=== PATIENT | female | born 1970 | race Caucasian/White ===

== ENCOUNTER 2019-08-11 11:44 | Inpatient (IN) | payer OTHER, SELFPAY ==
[2019-08-11] VITALS (9 sets, daily range): BP systolic 125–141; BP diastolic 69–106; PULSE 63–98; RESP 14–20; TEMP 36.5–36.8; O2SAT 98–99
--- NOTE | ~2019-08-11 | XR_ITS ---
EXAMINATION: XR chest 2V DATE: 08/11/2019 12:34 INDICATION: Chest pain. TECHNIQUE: Frontal and lateral views of the chest were obtained. COMPARISON: Chest 2 views 01/07/2019 FINDINGS: The chest demonstrates clear lungs without pneumonia, pleural effusion, or pneumothorax. Th e heart size is normal. IMPRESSION: 1. No acute cardiopulmonary disease. Reviewed, dictated and finalized at location A.
--- NOTE | 2019-08-11 12:00 | ECG_ITS ---
Measurements Intervals [place] Rate: 68 P: 41 MT: 212 QRS: -8 QRSD: 104 T: 62 QT: 365 QTc: 389 Interpretive Statements SINUS RHYTHM WITH FIRST DEGREE AV BLOCK INCOMPLETE RIGHT BUNDLE BRANCH BLOCK BASELINE WANDER- II, V4-V5 ABNORMAL ECG Electronically Signed On 08-11-2019 14:12:35 CDT by Salvador Pineda D.O.
--- NOTE | 2019-08-11 12:09 | ED.CHESTPAIN ---
HPI - Chest Pain General Chief Complaint: Chest Pain <KELSY Yeager Last Filed: 08/11/19 14:47> Stated Complaint: chest pain <KELSY Yeager Last Filed: 08/11/19 14:47> Time Seen by Provider: 08/11/19 11:58 <KELSY Yeager Last Filed: 08/11/19 14:47> Source: patient <KELSY Yeager Last Filed: 08/11/19 14:47> Mode of arrival: ambulatory <KELSY Yeager Last Filed: 08/11/19 14:47> Limitations: no limitations <KELSY Yeager Last Filed: 08/11/19 14:47> History of Present Illness HPI narrative: This is a 49 year old female that presents to the ER for chest pain x 3 days. Reports intermittent sharp substernal chest pain that has been happening with exertion. Reports the pain radiates to her right arm. Does report some shortness of breath with it. Is relieved with rest. She was seen by her PCP this morning and sent here for further evaluation. Reports while she was walking over here she started to have some pain again. Denies fever, cough. <KELSY Yeager Last Filed: 08/11/19 14:47> Related Data Home Medications: Home Medications Medication Instructions Recorded Confirmed buspirone 5 mg PO BID PRN 08/11/19 08/11/19 metformin 500 mg PO TID 08/11/19 08/11/19 <KELSY Yeager Last Filed: 08/11/19 14:47> Allergies/Adverse Reactions: Allergies Allergy/AdvReac Type Severity Reaction Status Date / Time No Known Allergies Allergy Verified 08/11/19 13:34 <KELSY Yeager Last Filed: 08/11/19 14:47> Review of Systems Review of Systems: Narrative: CONSTITUTIONAL: Denies fever CARDIOVASCULAR: Reports chest pain RESPIRATORY: Reports dyspnea. Denies cough <KELSY Yeager Last Filed: 08/11/19 14:47> All systems reviewed & are unremarkable except as noted in HPI and below <Elizabeth Fuller PA-C - Last Filed: 08/11/19 14:47> [facility] Past Medical History Medical History: Medical History (Updated 08/11/19 @ 17:49 by Edna Melara NP) Chest pain HLD (hyperlipidemia) HTN (hypertension), benign Type 2 diabetes mellitus without complications <Elizabeth Fuller PA-C - Last Filed: 08/11/19 14:47> Surgical History Surgical History: Surgical History (Updated 08/11/19 @ 17:49 by Edna Melara NP) H/O bladder repair surgery Sling History of hysterectomy with bilateral oophorectomy <KELSY Yeagre Last Filed: 08/11/19 14:47> Family History Family History: Family History (Updated 08/11/19 @ 17:50 by Edna Melara NP) Mother Diabetes mellitus Lung cancer Pacemaker Grandparent Colon cancer Father Family history unknown Siblings are healthy <Elizabeth Fuller PA-C - Last Filed: 08/11/19 14:47> Social History Social History: Social History (Updated 08/11/19 @ 17:51 by Edna Melara NP) Social History: The patient works for [employer]. She has a caregiver for her disabled daughter. The patient is to [place] and desires to have him as a durable power environmental attorney for healthcare. Patient desires to be a full code. The patient stop smoking last year in December and has had increasing anxiety since then. The patient does not use any alcohol marijuana or illicit drugs. Smoking packs per day: 2 Smoking cigarettes per day: 40.0 Years smoked: 35 Smoking pack-years: 70.00 Smoking status: Former smoker Tobacco type: cigarettes Second hand tobacco smoke exposure: Yes Smoking end date: 01/02/19 Alcohol intake: never Substance use: never Substance use type: does not use Living arrangements: with family Gender identity (if verbalized by the patient): Female Spiritual care concerns: No <Elizabeth Fuller PA-C - Last Filed: 08/11/19 14:47> Exam Narrative: Exam Narrative: GENERAL: Well-appearing, obese, and in no acute distress. HEAD: Normocephalic, atraumatic. EYES: EOMI. CHEST: Clear to auscultat
[2019-08-11 13:10] LABS: INR 0.9; Prothrombin Time 11.6 Seconds (11.1-14.7)
[2019-08-11 13:11] LABS: Partial Thromboplastin Time 25.6 SECONDS (22.3-36.8)
[2019-08-11 13:14] LABS: Blood Urea Nitrogen 14 mg/dL (7-17); Calcium 9.4 mg/dL (8.4-10.2); Carbon Dioxide 30 mmol/L (22-30); Chloride 101 mmol/L (98-107); Estimated CRCL calculation 161 ml/min; Estimated Glomerular Filt Rate > 60; Glucose 133 mg/dL (65-105); Potassium 4.1 mmol/L (3.4-5.0); Sodium 137 mmol/L (137-145)
[2019-08-11 13:24] LABS: Basophils Absolute Auto 0.1 K/mm3 (0.0-0.1); Basophils Percent Auto 0.8 % (0.2-1.2); Eosinophils Absolute Auto 0.2 K/mm3 (0-0.3); Eosinophils Percent Auto 2.3 % (0-4.4); Hematocrit 42.2 % (37.0-47.0); Hemoglobin 13.6 g/dL (12.0-15.0); Immature Granulocyte Absolute 0.05 K/mm3 (0.00-0.031); Immature Granulocyte Percent A 0.5 % (0-0.5); Lymphocytes Absolute Auto 2.72 K/mm3 (0.9-3.2); Lymphocytes Percent Auto 27.1 % (18.3-44.2); Mean Corpuscular HGB Conc 32.2 g/dl (32-36); Mean Corpuscular Hemoglobin 28.7 pg (26-34); Mean Platelet Volume 8.6 fl (7.4-10.4); Monocytes Absolute Auto 0.6 K/mm3 (0.1-0.6); Monocytes Percent Auto 5.7 % (2.6-8.5); Neutrophils Absolute Auto 6.4 K/mm3 (1.3-6.7); Neutrophils Percent Auto 63.6 % (45.5-73.1); Platelet Count Result 376 k/mm3 (150-375); Red Blood Count 4.74 M/mm3 (4.2-5.4); Red Cell Distribution Width 14.5 % (11.5-14.5)
[2019-08-11 13:26] LABS: Troponin I < 0.012 ng/mL (0.000-0.034)
[2019-08-11] MEDS: ASPIRIN 81 MG CHEWABLE TABLET 324 MG PO (13:36)
--- NOTE | 2019-08-11 14:45 | ED.CHESTPAIN ---
HPI - Chest Pain General Chief Complaint: Chest Pain Stated Complaint: chest pain Time Seen by Provider: 08/11/19 11:58 Source: patient Mode of arrival: ambulatory Limitations: no limitations Related Data Home Medications Medication Instructions Recorded Confirmed buspirone 5 mg PO BID PRN 08/11/19 08/11/19 metformin 500 mg PO TID 08/11/19 08/11/19 Allergies Allergy/AdvReac Type Severity Reaction Status Date / Time No Known Allergies Allergy Verified 08/11/19 13:34 [facility] Past Medical History Medical History (Updated 08/11/19 @ 17:49 by Edna Melara NP) Chest pain HLD (hyperlipidemia) HTN (hypertension), benign Type 2 diabetes mellitus without complications Surgical History Surgical History (Updated 08/11/19 @ 17:49 by Edna Melara NP) H/O bladder repair surgery Sling History of hysterectomy with bilateral oophorectomy Family History Family History (Updated 08/11/19 @ 17:50 by Edna Melara NP) Mother Diabetes mellitus Lung cancer Pacemaker Grandparent Colon cancer Father Family history unknown Siblings are healthy Social History Social History (Updated 08/11/19 @ 17:51 by Edna Melara NP) Social History: The patient works for [employer]. She has a caregiver for her disabled daughter. The patient is to [place] and desires to have him as a durable power divorce attorney for healthcare. Patient desires to be a full code. The patient stop smoking last year in December and has had increasing anxiety since then. The patient does not use any alcohol marijuana or illicit drugs. Smoking packs per day: 2 Smoking cigarettes per day: 40.0 Years smoked: 35 Smoking pack-years: 70.00 Smoking status: Former smoker Tobacco type: cigarettes Second hand tobacco smoke exposure: Yes Smoking end date: 01/02/19 Alcohol intake: never Substance use: never Substance use type: does not use Living arrangements: with family Gender identity (if verbalized by the patient): Female Spiritual care concerns: No Course Vital Signs Vital signs: Vital Signs Temperature 98.3 F 08/11/19 11:56 Pulse Rate 67 08/11/19 11:56 Respiratory Rate 18 08/11/19 11:56 Blood Pressure 125/106 H 08/11/19 11:56 Pulse Oximetry 99 08/11/19 11:56 Temperature 98 F 08/11/19 16:30 Pulse Rate 63 08/11/19 18:00 Respiratory Rate 14 08/11/19 16:30 Blood Pressure 129/69 08/11/19 16:30 Pulse Oximetry 98 08/11/19 16:30 MDM - Chest Pain Lab Data Result diagrams: 08/11/19 13:19 08/11/19 12:55 Labs: Lab Results 08/11/19 08/11/19 08/11/19 Range/Units 12:55 12:55 13:19 WBC 10.0 (4.5-10.0) K/mm3 RBC 4.74 (4.2-5.4) M/mm3 Hgb 13.6 (12.0-15.0) g/dL Hct 42.2 (37.0-47.0) % MCV 89.0 (80-100) fl MCH 28.7 (26-34) pg MCHC 32.2 (32-36) g/dl RDW 14.5 (11.5-14.5) % Plt Count 376 H (150-375) k/mm3 MPV 8.6 (7.4-10.4) fl Immature Gran % (Auto) 0.5 (0-0.5) % Neut % (Auto) 63.6 (45.5-73.1) % Lymph % (Auto) 27.1 (18.3-44.2) % [place] % (Auto) 5.7 (2.6-8.5) % Eos % (Auto) 2.3 (0-4.4) % Baso % (Auto) 0.8 (0.2-1.2) % Lymph # (Auto) 2.72 (0.9-3.2) K/mm3 [place] # (Auto) 0.6 (0.1-0.6) K/mm3 Eos # (Auto) 0.2 (0-0.3) K/mm3 Baso # (Auto) 0.1 (0.0-0.1) K/mm3 Abs Immat Gran (auto) 0.05 H (0.00-0.031) K/mm3 Absolute Neuts (auto) 6.4 (1.3-6.7) K/mm3 Absolute Nucleated RBC 0.0 (0.0-0.012) K/mm3 Nucleated RBC % 0.0 (0.0-0.2) % PT 11.6 (11.1-14.7) Seconds INR 0.9 APTT 25.6 (22.3-36.8) SECONDS Sodium 137 (137-145) mmol/L Potassium 4.1 (3.4-5.0) mmol/L Chloride 101 (98-107) mmol/L Carbon Dioxide 30 (22-30) mmol/L BUN 14 (7-17) mg/dL Creatinine 0.50 L (0.7-1.0) mg/dL Estim Creat Clear Calc 161 ml/min Estimated GFR > 60 (59 - ) Glucose 133 H (65-105) mg/dL Calcium 9.4 (8.
--- NOTE | 2019-08-11 15:39 | PM.CNCAR ---
Assessment and Plan Additional Plan 49-year-old white female with: Exertional chest pain history very suspicious for an typical of angina symptoms beginning several days ago. Morbid obesity hypertension dyslipidemia NIDDM physical exam evidence of peripheral vascular disease as detailed above I would proceed with diagnostic coronary angiography tomorrow morning. The patient understands the procedure details and is agreeable to proceeding. Tomorrow IM in the office and most likely the angiogram will be done by 1 of my partners. Benito Wilks MD [facility] History of Present Illness History of Present Illness Consult date/time: Date of service:08/11/19 15:39 Consult reason: chest pain Reason For Visit: chest pain Narrative: this is a 49-year-old woman that I am seeing at the request of the hospitalist. She came to the emergency room at the request of her PCP earlier this morning because of chest pain. She is being seen in the emergency room because she is waiting for a bed upstairs on the floor to be admitted. She is not previously known to have cardiac problems but states she began to have exertional chest pain late last week. On and Sunday of last week she started to notice some mild chest pain with physical activity such as walking that was never the case in the past. The symptoms were relatively mild and so she did not find too concerning. On Sunday she had similar symptoms when she was trying to do some yd work and other chores and the symptoms created enough concern where she decided to remain sedentary and stop performing activities. Because of this she was more concerned but still rest of the rest of the evening and had slept well set at going into Sunday. Yesterday on Sunday she had similar symptoms while she was walking her dog. She describes the symptoms as a central retrosternal chest pressure-like pain associated with some shortness of breath. The symptoms again resolved with walking. She called her doctor this morning she went to the PCP was seen in the office when she related this history they put her in a wheelchair and took her to the emergency room for evaluation and presumably for admission. In the emergency room her electrocardiogram is benign appearing her biomarkers are negative times of her set. The ED physician has already made the decision to admit this patient to the hospital and we have been consulted to participate in her care. She states she was concerned because of the phipps virus hoping not to have to come to the hospital. She has no other symptoms or complaints today. She denies any orthopnea PND or lower extremity edema she has not had any symptoms of palpitations or syncope. Principal risk factors include hypertension hypercholesterolemia non insulin-dependent diabetes and a previous history of smoking she quit smoking in December of 2018 after smoking for 35 years. Review of Systems Constitutional: Constitutional: Reports no additional constitutional complaints Eyes: Eyes: Reports no additional eye complaints ENT: Reports system reviewed and no additional complaints, except as documented Cardiovascular: Cardiovascular: Reports as per HPI and Reports chest pain Respiratory: Respiratory: Reports dyspnea on exertion Gastrointestinal: Gastrointestinal: Reports no additional gastrointestinal complaints Musculoskeletal: Musculoskeletal: Reports no additional musculoskeletal complaints Integumentary/Breasts: Skin/Breast: Reports system reviewed and no additional complaints, except as docu Neurologic: Reports system reviewed and no additional complaints, except as documented Psychiatric: Psychiatric: Reports no additional psychiatric complaints Endocrine: Endocrine: Reports no additional endocrine complaints Hematologic/Lymphatic: Hematologic/Lymphatic: Reports no additional hematologic/lymphatic complaints Allergic/Immunologic: Allergic/Immunologic: Reports no additional al
[2019-08-11 16:13] LABS: Troponin I < 0.012 ng/mL (0.000-0.034)
--- NOTE | 2019-08-11 16:19 | PC.NURSE ---
This patient, Kelli Fortune, was admitted to IMU Room 212-01. Patient/family oriented to hospital policies and general routines including ID bracelet, bed and alarms, visiting hours, pain management, procedures, bathroom and other care routines, personal items, smoking policy, room service/diet, and visiting hours. Valuables list has been completed. Information on how to activate the Rapid Response Team has been discussed. Patient/Family are encouraged to report perceived risks to care and to ask questions if they do not understand what they are told or what they should do.
--- NOTE | 2019-08-11 17:43 | PM.IMHP ---
H&P: HPI History of Present Illness Chief complaint: chest pain Narrative: Kelli Fortune is a 49 year old female who has no prior history of any cardiac disease. The patient does have a history of hypertension and diabetes. The patient stated that she is had chest pain since Sunday. The patient stated that she was walking when she developed some chest pain on Sunday. She sat down and relaxed and the pain went away. On Sunday she was walking her dog when only walked about a block and she got the chest pain again so she had to stop and rest and it would the pain was relieved when she rested. She has not had a previous stress test. Sunday the patient rested all day and she did not have any chest discomfort. The patient has a high deductible on her insurance and was afraid to come to the emergency room and also she did want to be here alone a new her would be with her she got admitted to the hospital. She went to her primary care doctor's office today to explain what happened over the weekend. She stated that the pain radiated down her left arm when she was getting the chest pain. She has had no history of any irregular heartbeat. She did not feel any palpitations. She does have a history of anxiety and acid reflux but she states that this is different from her usual anxiety. Cardiac biomarkers are negative so far. Cardiology has been consulted and there was a plan for cardiac catheterization tomorrow. The patient stated that she did take an aspirin today. Patient is not having any chest pain today. No nausea no vomiting no fever no chills no cough. EKG was noted per marine driller sinus rhythm first-degree AV block. The patient described her pain as a tightness or deep pain or pressure. She had no shortness of breath with this. She did have some mild chest discomfort when she was walking into the [place] building today. Patient was given aspirin in the emergency room. No acute cardiopulmonary disease. Date of service 08/11/2019. Review of Systems Review of Systems: All systems reviewed & are unremarkable except as noted in HPI and below Constitutional: Constitutional: Reports as per HPI and Reports no additional constitutional complaints Eyes: Eyes: Reports as per HPI and Reports no additional eye complaints ENT: Reports system reviewed and no additional complaints, except as documented and Reports Normal hearing present Cardiovascular: Cardiovascular: Reports no additional cardiovascular complaints Respiratory: Respiratory: Reports no additional respiratory complaints and Reports no additional respiratory complaints Gastrointestinal: Gastrointestinal: Reports as per HPI and Reports no additional gastrointestinal complaints Musculoskeletal: Musculoskeletal: Reports no additional musculoskeletal complaints Integumentary/Breasts: Skin/Breast: Reports system reviewed and no additional complaints, except as docu and Reports as per HPI Neurologic: Reports system reviewed and no additional complaints, except as documented, Reports as per HPI and Reports Normal hearing present Psychiatric: Psychiatric: Reports no additional psychiatric complaints and Reports as per HPI Endocrine: Endocrine: Reports no additional endocrine complaints Hematologic/Lymphatic: Hematologic/Lymphatic: Reports no additional hematologic/lymphatic complaints Allergic/Immunologic: Allergic/Immunologic: Reports no additional allergic/immunologic complaints PMFSH Past Medical History Medical History (Updated 08/11/19 @ 17:49 by Edna Melara NP) Chest pain HLD (hyperlipidemia) HTN (hypertension), benign Type 2 diabetes mellitus without complications Surgical History Surgical History (Updated 08/11/19 @ 17:49 by Edna Melara NP) H/O bladder repair surgery Sling History of hysterectomy with bilateral oophorectomy Family History Family History (Updated 08/11/19 @ 17:50 by Edna Melara NP) Mother Diabetes mellitus Lung cance
[2019-08-11] MEDS: lisinopriL 10 MG TABLET PO (18:15)
[2019-08-11] MEDS: ESCITALOPRAM OXALATE 10 MG TABLET PO (18:15)
[2019-08-11 19:28] LABS: Troponin I < 0.012 ng/mL (0.000-0.034)
[2019-08-11 20:32] LABS: Glucose Point of Care 151 (65-105)
[2019-08-12] VITALS (19 sets, daily range): BP systolic 101–154; BP diastolic 45–79; PULSE 54–105; RESP 12–20; TEMP 36.3–36.7; O2SAT 96–100
--- NOTE | 2019-08-12 | ECHO_ITS ---
Patient Info Name: Kelli Fortune Age: 49 years : 1970 Gender: Female Ht: 70 in Wt: 280 lbs BSA: 2.56 m2 HR: 60 bpm BP: 130 / 69 mmHg Heart Rhythm: Sinus Rhythm Technical Quality: Fair Exam Date: 08/12/2019 12:02 PM Exam Location: [facility] Patient Status: Inpatient Admit Date: 08/11/2019 Staff Ordering Physician: Ovi Adorno MD Para Machine Operator: Eulogio Minaya RDCS Attending Provider: Demetrice Joel MD Exam Type: CA echo dop color flow w con Study Info Indications I20.0 - Unstable angina Complete two-dimensional, color flow and Doppler transthoracic echocardiogram is performed with contrast to opacify the left ventrical and to improve the deliniation of the left ventrical endocarial boarders. Contrast/Agitated Saline Contrast/Ag. Saline: Definity Amount: 2.00 ml Administered By: Stephanie Adamson RN Existing IV Access: Yes History/Risk Factors Unstable angina; CAD pre-op for CABG, DM2, HTN. Summary 1. Left ventricular chamber size, systolic function and diastolic function are normal with no regional wall motion abnormalities with an estimated ejection fraction of 60-65%. No wall motion abnormalities. Mild concentric left ventricular hypertrophy. 2. Left atrial chamber dimension is mildly enlarged. 3. Left ventricle is not well visualized. Definity Echo contrast used. 4. No pulmonary hypertension, estimated pulmonary arterial systolic pressure is 33 mmHg. 5. No significant valve disease. 6. Normal sinus rhythm. Left Ventricle Left ventricular chamber dimension is normal. Left ventricular systolic function is normal, estimated at 60-65%. There is mildly increased left ventricular wall thickness. Left ventricular septal wall motion is normal. The left ventricular diastolic function is normal. Left ventricular chamber size, systolic function and diastolic function are normal with no regional wall motion abnormalities with an estimated ejection fraction of 60-65%. No wall motion abnormalities. Mild concentric left ventricular hypertrophy. Left ventricle is not well visualized. Definity Echo contrast used. Right Ventricle Right ventricular chamber dimension is normal. Right ventricular systolic function is normal. Left Atria Left atrial chamber dimension is mildly enlarged. Right Atria Right atrial chamber dimension is normal. Aortic Valve The aortic valve is trileaflet. There is no aortic valve sclerosis. There is no aortic valve stenosis. There is no aortic valve regurgitation. Pulmonic Valve The pulmonic valve is normal. There is no pulmonic valve stenosis. There is no pulmonic regurgitation. Mitral Valve The mitral valve has normal leaflets. There is no mitral valve stenosis. There is no mitral valve regurgitation. Tricuspid Valve The tricuspid valve leaflets are normal. There is no significant tricuspid valve stenosis. There is trace tricuspid valve regurgitation. No pulmonary hypertension, estimated pulmonary arterial systolic pressure is 33 mmHg. Pericardium/Pleural The pericardium appears normal. There is no pericardial effusion. Inferior Vena Cava Normal inferior vena cava with >50% collapse upon inspiration consistent with Empty right atrial pressure, 5 mmHg. Aorta The aortic root size at the sinus of Valsalva is normal. The prox ascending aorta size is normal. Left Ventricular Outflow Tract
[2019-08-12 04:22] LABS: Basophils Absolute Auto 0.1 K/mm3 (0.0-0.1); Basophils Percent Auto 0.8 % (0.2-1.2); Eosinophils Absolute Auto 0.2 K/mm3 (0-0.3); Eosinophils Percent Auto 2.4 % (0-4.4); Hematocrit 37.6 % (37.0-47.0); Hemoglobin 12.4 g/dL (12.0-15.0); Immature Granulocyte Absolute 0.03 K/mm3 (0.00-0.031); Immature Granulocyte Percent A 0.3 % (0-0.5); Lymphocytes Absolute Auto 2.76 K/mm3 (0.9-3.2); Lymphocytes Percent Auto 30.2 % (18.3-44.2); Mean Corpuscular Volume 88.1 fl (80-100); Mean Platelet Volume 8.5 fl (7.4-10.4); Monocytes Absolute Auto 0.6 K/mm3 (0.1-0.6); Monocytes Percent Auto 6.6 % (2.6-8.5); Neutrophils Absolute Auto 5.5 K/mm3 (1.3-6.7); Neutrophils Percent Auto 59.7 % (45.5-73.1); Platelet Count Result 349 k/mm3 (150-375); Red Blood Count 4.27 M/mm3 (4.2-5.4); Red Cell Distribution Width 14.6 % (11.5-14.5); White Blood Count 9.1 K/mm3 (4.5-10.0)
[2019-08-12 04:39] LABS: Alanine Aminotransferase 21 U/L (4-35); Albumin Level 3.9 g/dL (3.5-5.1); Alkaline Phosphatase 95 U/L (38-126); Aspartate Amino Transferase 21 U/L (14-36); Bilirubin,Total 0.2 mg/dL (0.2-1.3); Blood Urea Nitrogen 17 mg/dL (7-17); Calcium 9.1 mg/dL (8.4-10.2); Carbon Dioxide 27 mmol/L (22-30); Chloride 102 mmol/L (98-107); Estimated CRCL calculation 161 ml/min; Estimated Glomerular Filt Rate > 60; Glucose 149 mg/dL (65-105); Potassium 3.9 mmol/L (3.4-5.0); Sodium 135 mmol/L (137-145)
[2019-08-12] MEDS: ASPIRIN 81 MG ENTERIC TABLET BY MOUTH (08:06)
[2019-08-12] MEDS: ESCITALOPRAM OXALATE 10 MG TABLET PO (08:06)
[2019-08-12] MEDS: lisinopriL 10 MG TABLET PO (08:06)
[2019-08-12 08:08] LABS: Glucose Point of Care 176 (65-105)
--- NOTE | 2019-08-12 08:20 | PC.NURSE ---
Patient to cardiac rags laborer via stretcher.
--- NOTE | 2019-08-12 08:40 | WPDMODSED ---
Moderate Sedation Note-Pt Data Patient Data Allergies Allergy/AdvReac Type Severity Reaction Status Date / Time No Known Allergies Allergy Verified 08/11/19 13:34 Home Medications Medication Instructions Recorded Confirmed Type lisinopril 10 mg tablet 10 mg PO DAILY #30 tablet 04/22/19 08/11/19 Rx escitalopram oxalate 10 mg tablet 10 mg PO DAILY #30 tablet 05/28/19 08/11/19 Rx buspirone 5 mg PO BID PRN 08/11/19 08/11/19 History metformin 500 mg PO TID 08/11/19 08/11/19 History Current Medications: Active Medications Aspirin (Aspirin Ec) 81 mg BY MOUTH DAILY [facility] Stop: 09/11/19 09:01 Last Admin: 08/12/19 08:06 Dose: 81 mg Documented by: Buspirone HCl (Buspar) 5 mg PO BID PRN PRN Reason: Anxiety Dextrose (Dextrose 50% Syringe) 12.5 gm IV PUSH PRN PRN; Protocol PRN Reason: Hypoglycemia Escitalopram Oxalate (Lexapro) 10 mg PO DAILY [facility] Last Admin: 08/12/19 08:06 Dose: 10 mg Documented by: Glucagon (Glucagon For Inj) 1 mg IM PRN PRN; Protocol PRN Reason: Hypoglycemia Glucose (Glutose 15) 15 gm PO PRN PRN; Protocol PRN Reason: Hypoglycemia Sodium Chloride (Normal Saline Iv) 500 mls @ 100 mls/hr IV CONT .Q5H [facility] Dextrose (Dextrose 5% 1,000 Ml) 1,000 mls @ 100 mls/hr IVPB PRN PRN; Protocol PRN Reason: Hypoglycemia Insulin Aspart (Novolog) 2 - 5 units SUB-Q TIDWM [facility]; Protocol Last Admin: 08/12/19 07:53 Dose: Not Given Documented by: Lisinopril (Prinivil) 10 mg PO DAILY [facility] Last Admin: 08/12/19 08:06 Dose: 10 mg Documented by: Lorazepam (Ativan Inj) 0.5 mg IV PUSH Q6H PRN PRN Reason: Anxiety Morphine Sulfate (Morphine Sulfate Inj) 2 mg IV PUSH Q4H PRN PRN Reason: Pain Rated 7-10 Nitroglycerin (Nitrostat Subl 0.4 Mg (1/150)) 0.4 mg SUBLINGUAL Q5MIN PRN PRN Reason: Chest Pain Sedation/Anesthesia: No previous sedation/anesthesia problems (including family history). [facility] Past Medical History Medical History (Updated 08/11/19 @ 17:49 by Edna Melara NP) Chest pain HLD (hyperlipidemia) HTN (hypertension), benign Type 2 diabetes mellitus without complications Surgical History Surgical History (Updated 08/11/19 @ 17:49 by Edna Melara NP) H/O bladder repair surgery Sling History of hysterectomy with bilateral oophorectomy Family History Family History (Updated 08/11/19 @ 17:50 by Edna Melara NP) Mother Diabetes mellitus Lung cancer Pacemaker Grandparent Colon cancer Father Family history unknown Siblings are healthy Social History Social History (Updated 08/11/19 @ 17:51 by Edna Melara NP) Social History: The patient works for [employer]. She has a caregiver for her disabled daughter. The patient is to [employer] [place] and desires to have him as a durable power securities attorney for healthcare. Patient desires to be a full code. The patient stop smoking last year in December and has had increasing anxiety since then. The patient does not use any alcohol marijuana or illicit drugs. Smoking packs per day: 2 Smoking cigarettes per day: 40.0 Years smoked: 35 Smoking pack-years: 70.00 Smoking status: Former smoker Tobacco type: cigarettes Second hand tobacco smoke exposure: Yes Smoking end date: 01/02/19 Alcohol intake: never Substance use: never Substance use type: does not use Living arrangements: with family Gender identity (if verbalized by the patient): Female Spiritual care concerns: No Mod Sed Physical Exam Physical Exam Pre Procedural Exam: Normal: Airway Hours since solid foods: 10 Hours since liquid intake: 10 Internal Medicine - PN: Obj Da Vital Signs Vital Signs: Vital Signs - 24 hr 08/11/19 11:56 08/11/19 13:32 08/11/19 16:00 Temperature 36.8 C Pulse Rate 67 67 71 Respiratory Rate 18 16 Blood Pressure 125/106 H 127/86 Pulse Oximetry 99 99 08/11/19 16:08 08/11/19 16:30 08/11/19 18:00 Temperature 36.6 C Pulse Rate 65 67 63 Respiratory Rate 16 14 Blood Pressure 130/100 H
--- NOTE | 2019-08-12 08:42 | WPDHPUPDATE1 ---
History and Physical Update Update Date/Time: 08/12/19 08:42 History and Physical has been reviewed, including an updated exam of the patient. There are NO changes in the patient's condition. Risks, benefits, and alternatives have been discussed and questions answered. Patient agrees to proceed with procedure.
--- NOTE | 2019-08-12 10:08 | WPDCARDPROC ---
Cardiac Cath Procedure Note Date of procedure:: 08/12/19 Performing physician:: Ovi Adorno MD Procedure Procedure note:: LEFT HEART CATHETERIZATION, CORONARY ANGIOGRAM AND INTERVENTION REPORT DATE OF PROCEDURE: 08/12/2019 INDICATION FOR PROCEDURE: Unstable angina BRIEF CLINICAL HISTORY: 49-year-old female with past medical history of hypertension, type 2 diabetes mellitus on oral hypoglycemics, morbid obesity. Patient was admitted to [facility] on 08/11/2019 from her primary care physician's office with complaints of substernal chest discomfort associated with shortness of breath that started about 3 days prior to the presentation. There is no known prior cardiac history. Her EKG did not show any significant ST-T abnormality. Serial troponins were negative. She was referred for coronary angiogram in the setting of unstable angina. Benefits, risks and alternatives of the procedure were discussed with the patient and informed consent was taken prior to the procedure. PROCEDURES PERFORMED: 1. Left heart catheterization- Selective left and right coronary angiogram; left ventriculogram and hemodynamic assessment 2. Intravascular ultrasound (IVUS) of left main, proximal -mid LAD 2. Selective right common femoral angiogram and deployment of Angio-Seal hemostatic device 4. Moderate sedation-CPT code 68915 MODERATE SEDATION: Midazolam 3 mg; fentanyl 75 mcg; Start time 0846 , Stop time 0953 ; Total [id number] time 67 minutes; Nguyen Dinh RN was trained observer for moderate sedation. ACCESS SITE: Right common femoral artery PROCEDURE NOTE: After obtaining informed consent, patient was brought to catheterization lab and prepped and draped in a usual sterile manner. After local anesthesia with lidocaine, right common femoral artery access was taken with micropuncture needle followed by insertion of a 5 Kyrgyz sheath. Selective left and right coronary angiogram was performed using 5 Kyrgyz JL3.5 and JR4 catheters respectively. Orthogonal views were taken. Next, a 5 Kyr[place]z pigtail catheter was advanced in the LV cavity and was flushed with normal saline. LV pressure measurement was performed. After this, left ventriculogram was performed. The catheter was flushed again, and gradient across the aortic valve was measured on the pullback of the catheter. Finally, selective right common femoral angiogram was performed followed by successful deployment of Angio-Seal vascular closure device. Patient tolerated procedure well without any immediate procedure related complications. FINDINGS: LEFT MAIN CORONARY: the left main coronary artery is a medium caliber vessel. There was catheter damping. In the caudal projections, no significant stenosis was seen. However, in the cranial view ( SAMI 32, cranial 24 ), about 70% stenosis is seen at the ostium of the left main coronary artery. There was no significant angiographic improvement with the intracoronary nitroglycerin. The intravascular ultrasound findings are described below. The left main bifurcates into LAD and left circumflex branches. The LAD tapers distally and becomes a small caliber vessel in the distal segment and does not reach LV apex. LEFT ANTERIOR DESCENDING ARTERY: The LAD is a medium caliber vessel with mild irregularities in the proximal segment; but 50-70% stenosis seen in the mid segment distal to the major diagonal branch. Major diagonal branch is a medium to large caliber vessel with mild diffuse disease in the proximal segment. LEFT CIRCUMFLEX ARTERY: The left circumflex artery is a medium to large caliber vessel, gives rise to medium-sized OM 1 branch and medium to large-sized OM2 branch with mild plaque in both vessels. The main LCX continues in the AV groove. RIGHT CORONARY ARTERY: The right coronary artery is a large caliber, dominant vessel. There is mild about 20% stenosis in the mid segment. The vessel gives rise to large caliber PDA and PLV branches. L
--- NOTE | 2019-08-12 10:15 | SUR.PHASEII ---
1015-pt presents to the [facility] after an LHC. Pt had CP which resolved during the case but now has 4/10 CP. Started Nitro drip again. CP has resolved and will monitor for return of CP. Heparin drip ordered and will begin when received. Will continue to monitor.
[2019-08-12] MEDS: HEPARIN SOD/D5W 100 UNITS/ML 25,000 UNITS/250 ML BAG 10 UNITS (10:54)
[2019-08-12] MEDS: NITROGLYCERIN/D5W 200 MCG/ML 50 MG/250 ML BTL IV CONT (10:55)
--- NOTE | 2019-08-12 11:07 | PC.NURSE ---
Report called to XAVIER Gavin in ICU. Patient to be transferred to ICU 9 from cardiac cath for nitroglycerin drip. Belongings taken to patient in chest pain center by jaison Wu.
[2019-08-12] MEDS: HEPARIN SOD/D5W 100 UNITS/ML 25,000 UNITS/250 ML BAG 10 UNITS IV CONT (11:20)
[2019-08-12 11:48] LABS: Basophils Absolute Auto 0.1 K/mm3 (0.0-0.1); Basophils Percent Auto 0.7 % (0.2-1.2); Eosinophils Absolute Auto 0.1 K/mm3 (0-0.3); Eosinophils Percent Auto 1.4 % (0-4.4); Hematocrit 43.5 % (37.0-47.0); Hemoglobin 14.1 g/dL (12.0-15.0); Immature Granulocyte Absolute 0.04 K/mm3 (0.00-0.031); Immature Granulocyte Percent A 0.4 % (0-0.5); Lymphocytes Absolute Auto 1.65 K/mm3 (0.9-3.2); Lymphocytes Percent Auto 17.4 % (18.3-44.2); Mean Corpuscular HGB Conc 32.4 g/dl (32-36); Mean Corpuscular Hemoglobin 29.1 pg (26-34); Mean Corpuscular Volume 89.9 fl (80-100); Mean Platelet Volume 8.6 fl (7.4-10.4); Monocytes Absolute Auto 0.5 K/mm3 (0.1-0.6); Monocytes Percent Auto 4.7 % (2.6-8.5); Neutrophils Absolute Auto 7.2 K/mm3 (1.3-6.7); Neutrophils Percent Auto 75.4 % (45.5-73.1); Platelet Count Result 368 k/mm3 (150-375); Red Blood Count 4.84 M/mm3 (4.2-5.4); Red Cell Distribution Width 14.5 % (11.5-14.5); White Blood Count 9.5 K/mm3 (4.5-10.0)
[2019-08-12 11:57] LABS: INR 1.2; Prothrombin Time 14.9 Seconds (11.1-14.7)
[2019-08-12 11:58] LABS: Partial Thromboplastin Time 67.2 SECONDS (22.3-36.8)
[2019-08-12 15:15] LABS: Glucose Point of Care 129 (65-105)
--- NOTE | 2019-08-12 15:58 | PM.IMPN ---
Progress Note: A&P Assessment and Plan (1) Chest pain: Qualifiers: Chest pain type: unspecified Qualified Code(s): R07.9 - Chest pain, unspecified Code(s): R07.9 - Chest pain, unspecified Status: Acute Assessment and Plan: Continue to trend troponins. Cardiology has been consulted. On an aspirin. Will add p.r.n. nitro and morphine if patient developed some chest pain. Continue to monitor the patient on telemetry. Planning on patient going to cardiac catheterization tomorrow. (2) Type 2 diabetes mellitus without complications: Code(s): E11.9 - Type 2 diabetes mellitus without complications Status: Chronic Assessment and Plan: Accu-Cheks AC and HS. Hold her metformin as she is going for cardiac catheterization tomorrow. (3) HLD (hyperlipidemia): Code(s): E78.5 - Hyperlipidemia, unspecified Status: Chronic Assessment and Plan: Patient was not placed on any statins at this time but I imagine she has a heart disease she was placed on a statin. (4) Anxiety: Code(s): F41.9 - Anxiety disorder, unspecified Status: Acute Assessment and Plan: Patient is doing well on Lexapro and I will add some p.r.n. Ativan. She is also on buspirone. (5) HTN (hypertension), benign: Code(s): I10 - Essential (primary) hypertension Status: Acute Assessment and Plan: Continue with lisinopril. Subjective Date/time seen: 08/12/19 15:58 Objective Data Vital Signs Vital Signs: Vital Signs - 24 hr 08/11/19 16:00 08/11/19 16:08 08/11/19 16:30 Temperature 98 F Pulse Rate 71 65 67 Respiratory Rate 16 14 Blood Pressure 130/100 H 129/69 Pulse Oximetry 98 98 08/11/19 18:00 08/11/19 19:45 08/11/19 20:00 Temperature 97.7 F Pulse Rate 63 98 69 Respiratory Rate 20 Blood Pressure 141/69 H Pulse Oximetry 99 08/11/19 22:00 08/12/19 00:00 08/12/19 02:00 Temperature 98.0 F Pulse Rate 65 69 67 Respiratory Rate 18 Blood Pressure 101/45 L Pulse Oximetry 98 08/12/19 03:53 08/12/19 04:00 08/12/19 05:55 Temperature 97.9 F Pulse Rate 61 57 L 58 L Respiratory Rate 20 Blood Pressure 115/57 L Pulse Oximetry 98 08/12/19 08:00 08/12/19 10:15 08/12/19 10:30 Temperature 97.3 F L 98.1 F Pulse Rate 55 L 59 L 56 L Respiratory Rate 16 12 14 Blood Pressure 141/63 H 154/77 H 131/67 Pulse Oximetry 100 98 100 08/12/19 10:46 08/12/19 11:00 08/12/19 11:15 Temperature Pulse Rate 59 L 58 L 57 L Respiratory Rate 14 14 16 Blood Pressure 143/70 H 133/77 140/72 Pulse Oximetry 100 98 99 08/12/19 11:30 08/12/19 12:00 08/12/19 13:00 Temperature 98 F 97.8 F Pulse Rate 60 57 L 59 L Respiratory Rate 14 16 14 Blood Pressure 130/69 134/62 107/69 Pulse Oximetry 98 96 98 08/12/19 14:00 08/12/19 15:00 Temperature Pulse Rate 65 78 Respiratory Rate 14 14 Blood Pressure 121/67 119/60 Pulse Oximetry 98 98 Intake/Output Intake/Output: Intake & Output 08/09/19 08/10/19 08/11/19 08/12/19 23:59 23:59 23:59 23:59 Intake Total 540 860 Output Total 1500 Balance 540 -640 Meds/Results Medications: Active Medications Generic Name Dose Route Start Last Admin Trade Name Freq PRN Reason Stop Dose Admin Aspirin 81 mg 08/12/19 09:00 08/12/19 08:06 Aspirin Ec BY MOUTH 09/11/19 09:01 81 mg DAILY MARQUES Administration Buspirone HCl 5 mg 08/11/19 18:03 Buspar PO BID PRN Anxiety Dextrose 12.5 gm 08/11/19 18:06 Dextrose 50% Syringe IV PUSH PRN PRN Hypoglycemia Protocol Escitalopram Oxalate 10 mg 08/11/19 18:10 08/12/19 08:06 Lexapro PO 10 mg DAILY MARQUES Administration Glucagon 1 mg 08/11/19 18:06 Glucagon For Inj IM PRN PRN Hypoglycemia Protocol Glucose 15 gm 08/11/19 18:06 Glutose 15 PO PRN PRN Hypoglycemia Protocol Heparin Sodium (Porcine) 4,000 units 08/12/19 11:47 Heparin Sodium
--- NOTE | 2019-08-12 16:07 | PM.TDS ---
Transfer Discharge Sum: Prov Provider Date of admission: 08/12/19 11:24 Primary care physician: Guillermo Rubio MD Admitting clinician: Demetrice Joel MD Consults: 08/11/19 14:43 Consult to Physician Routine Comment: Consulting Provider: Manasa Nye Reason for consultation: Chest pain Has provider been notified: Yes Attending physician on discharge: Ben Dominguez Anticipated date of transfer: 08/12/19 DS: Diagnosis Admitting Diagnosis Admitting Diagnosis: Chest pain, unspecified Discharge Diagnosis (1) CAD (coronary artery disease): Qualifiers: Coronary Disease-Associated Artery/Lesion type: samish artery [place] vs. transplanted heart: samish heart Associated angina: with unstable angina Qualified Code(s): I25.110 - Atherosclerotic heart disease of samish coronary artery with unstable angina pectoris Code(s): I25.10 - Atherosclerotic heart disease of samish coronary artery without angina pectoris Status: Acute (2) Chest pain: Qualifiers: Chest pain type: chest pain due to myocardial ischemia Ischemic chest pain type: unstable angina pectoris Qualified Code(s): I20.0 - Unstable angina Code(s): R07.9 - Chest pain, unspecified Status: Acute (3) Type 2 diabetes mellitus without complications: Code(s): E11.9 - Type 2 diabetes mellitus without complications Status: Chronic (4) HLD (hyperlipidemia): Code(s): E78.5 - Hyperlipidemia, unspecified Status: Chronic (5) Anxiety: Code(s): F41.9 - Anxiety disorder, unspecified Status: Acute (6) HTN (hypertension), benign: Code(s): I10 - Essential (primary) hypertension Status: Acute Transfer Discharge Sum: Med Medications Active and Home Medications: Home Medications lisinopril 10 mg tablet 10 mg PO DAILY #30 tablet 04/22/19 [Rx Confirmed 08/11/19] escitalopram oxalate 10 mg tablet 10 mg PO DAILY #30 tablet 05/28/19 [Rx Confirmed 08/11/19] buspirone 5 mg PO BID PRN 08/11/19 [History Confirmed 08/11/19] metformin 500 mg PO TID 08/11/19 [History Confirmed 08/11/19] Active Medications Aspirin (Aspirin Ec) 81 mg BY MOUTH DAILY MARQUES Stop: 09/11/19 09:01 Last Admin: 08/12/19 08:06 Dose: 81 mg Documented by: Buspirone HCl (Buspar) 5 mg PO BID PRN PRN Reason: Anxiety Dextrose (Dextrose 50% Syringe) 12.5 gm IV PUSH PRN PRN; Protocol PRN Reason: Hypoglycemia Escitalopram Oxalate (Lexapro) 10 mg PO DAILY [facility] Last Admin: 08/12/19 08:06 Dose: 10 mg Documented by: Glucagon (Glucagon For Inj) 1 mg IM PRN PRN; Protocol PRN Reason: Hypoglycemia Glucose (Glutose 15) 15 gm PO PRN PRN; Protocol PRN Reason: Hypoglycemia Heparin Sodium (Porcine) (Heparin Sodium) 4,000 units IV PUSH PRN PRN PRN Reason: aPTT less than 55 seconds Heparin Sodium (Porcine) (Heparin Sodium) 3,500 units IV PUSH PRN PRN PRN Reason: aPTT 55 - 70 seconds Sodium Chloride (Normal Saline Iv) 500 mls @ 100 mls/hr IV CONT .Q5H MARQUES Last Admin: 08/12/19 13:34 Dose: Not Given Documented by: Dextrose (Dextrose 5% 1,000 Ml) 1,000 mls @ 100 mls/hr IVPB PRN PRN; Protocol PRN Reason: Hypoglycemia Nitroglycerin/Dextrose (Nitroglycerin In 5% Dextrose 50 Mg) 50 mg in 250 mls @ 0.75 mls/hr IV CONT .Q24H MARQUES; Protocol Last Titration: 08/12/19 11:15 Dose: 2.5 mcg/min, 0.8 mls/hr Documented by: Sodium Chloride (Normal Saline Iv) 1,000 mls @ 125 mls/hr IV CONT .Q8H ONE Stop: 08/12/19 18:36 Last Admin: 08/12/19 13:35 Dose: Not Given Documented by: Heparin Sodium/Dextrose (Heparin Sodium/D5w 100 Units/Ml) 25,000 units in 250 mls @ 10 mls/hr IV CONT .Q24H [facility]; Protocol Last Admin: 08/12/19 11:20 Dose: 7.87 units/kg/hr, 10 mls/hr Documented by: Insulin Aspart (Novolog) 2 - 5 units SUB-Q TIDWM [facility]; Protocol Last Admin: 08/12/19 13:35 Dose: Not Given Documented by: Lisinopril (Prinivil) 10 mg PO DAILY [facility] Last Admin: 08/12/19 08:06 Dose: 10 mg Documented by: Blayne
[2019-08-12 17:12] LABS: Glucose Point of Care 158 (65-105)
[2019-08-12] MEDS: HEPARIN SODIUM 5,000 UNITS/ML VIAL 4000 UNITS IV PUSH (20:08)
--- NOTE | 2019-08-12 20:20 | PC.NURSE ---
Patient sent via [facility] to [place]. Jenna PARK at [place] notified of updates. No further questions. All personal belongings given to patient. Heparin Drip and IV pump sent on transfer.
== END 2019-08-12 20:35 | disposition home or self-care (01) | DRG 287 ==
LOC: ANHED 14:47 → ANHIMU 16:14 → ANHICU 08-12 13:32 → ANHIMU 12-23 10:30
PROVIDERS: Internal Medicine Cardiovascular Disease; Nurse Practitioner; Nurse Practitioner Adult Health; Physician Assistant; Admitting Provider Family Medicine; Emergency Provider Emergency Medicine; PCP Family Medicine; Visit Provider Internal Medicine
PROC: 4A023N7 Measurement of Cardiac Sampling and Pressure, Left Heart, Percutaneous Approach (ICD-10-PCS; CPT 93452; principal; 2019-08-12 08:00)
PROC: 4A023N7 Measurement of Cardiac Sampling and Pressure, Left Heart, Percutaneous Approach (ICD-10-PCS; 2019-08-12 08:00)
PROC: 4A023N7 Measurement of Cardiac Sampling and Pressure, Left Heart, Percutaneous Approach (ICD-10-PCS; CPT 37252; 2019-08-12 08:00)
PROC: 4A023N7 Measurement of Cardiac Sampling and Pressure, Left Heart, Percutaneous Approach (ICD-10-PCS; 2019-08-12 08:00)
DX: I25.110 Atherosclerotic heart disease of native coronary artery with unstable angina pectoris (principal); E11.9 Type 2 diabetes mellitus without complications; I10 Essential (primary) hypertension; E78.5 Hyperlipidemia, unspecified; F41.9 Anxiety disorder, unspecified; E66.01 Morbid (severe) obesity due to excess calories; Z79.84 Long term (current) use of oral hypoglycemic drugs; Z79.899 Other long term (current) drug therapy; Z87.891 Personal history of nicotine dependence
CPT/HCPCS: 36415; 71046; 80048; 80053; 83735; 84443; 84484; 85025; 85610; 85730; 92978; 92979; 93005; 93458; 99285; A9270; C1753; C1760; C1769; C1887; C1894; C8929; G0269; J0583; J1644; J2250; J3010; J7040; Q9957

== ENCOUNTER 2019-08-28 09:47 | Outpatient (CLI) | payer OTHER, SELFPAY ==
[2019-08-28 10:37] LABS: Basophils Absolute Auto 0.1 K/mm3 (0.0-0.1); Basophils Percent Auto 0.5 % (0.2-1.2); Eosinophils Absolute Auto 0.3 K/mm3 (0-0.3); Eosinophils Percent Auto 2.1 % (0-4.4); Hemoglobin 8.2 g/dL (12.0-15.0); Immature Granulocyte Absolute 0.07 K/mm3 (0.00-0.031); Immature Granulocyte Percent A 0.5 % (0-0.5); Lymphocytes Absolute Auto 2.34 K/mm3 (0.9-3.2); Lymphocytes Percent Auto 17.5 % (18.3-44.2); Mean Corpuscular HGB Conc 31.5 g/dl (32-36); Mean Corpuscular Hemoglobin 28.5 pg (26-34); Mean Corpuscular Volume 90.3 fl (80-100); Mean Platelet Volume 8.2 fl (7.4-10.4); Monocytes Absolute Auto 0.9 K/mm3 (0.1-0.6); Monocytes Percent Auto 6.5 % (2.6-8.5); Neutrophils Absolute Auto 9.7 K/mm3 (1.3-6.7); Neutrophils Percent Auto 72.9 % (45.5-73.1); Platelet Count Result 720 k/mm3 (150-375); Red Blood Count 2.88 M/mm3 (4.2-5.4); Red Cell Distribution Width 14.9 % (11.5-14.5); White Blood Count 13.4 K/mm3 (4.5-10.0)
[2019-08-28 10:48] LABS: Add Urine Microscopic? YES; Appearance Urine Turbid (Clear); Bacteria Urine 2+ /hpf; Bilirubin Urine Negative (Negative); Blood Urine 2+ (Negative); Color Urine Yellow (Yellow); Glucose Urine UA Negative (Negative); Ketones Urine Negative (Negative); Leukocyte Esterase Ur 3+ LEU/UL (NEGATIVE); Mucus Urine Few /lpf; Nitrate Urine Negative (Negative); Protein Urine Negative (Negative); RBC Urine 21-50 /hpf (0-2); Specific Grav Ur 1.011 (1.001-1.035); Squamous Epithelial Cell Urine Many /hpf (Few); Urobilinogen Urine Negative mg/dL (<2.0); WBC Urine >75 /hpf (0-3)
== END 2019-08-28 09:48 | disposition home or self-care (01) ==
PROVIDERS: PCP Family Medicine; Visit Provider Physician Assistant
DX: D72.829 Elevated white blood cell count, unspecified (principal)
CPT/HCPCS: 36415; 81001; 85025

== ENCOUNTER 2019-09-03 11:43 | Outpatient (CLI) | payer OTHER, SELFPAY ==
[2019-09-03 12:38] LABS: Basophils Absolute Auto 0.1 K/mm3 (0.0-0.1); Basophils Percent Auto 0.6 % (0.2-1.2); Eosinophils Absolute Auto 0.4 K/mm3 (0-0.3); Eosinophils Percent Auto 4.3 % (0-4.4); Hematocrit 28.7 % (37.0-47.0); Hemoglobin 8.9 g/dL (12.0-15.0); Immature Granulocyte Absolute 0.03 K/mm3 (0.00-0.031); Immature Granulocyte Percent A 0.3 % (0-0.5); Lymphocytes Absolute Auto 2.45 K/mm3 (0.9-3.2); Lymphocytes Percent Auto 25.8 % (18.3-44.2); Mean Corpuscular Hemoglobin 27.9 pg (26-34); Mean Platelet Volume 7.8 fl (7.4-10.4); Monocytes Absolute Auto 0.6 K/mm3 (0.1-0.6); Platelet Count Result 543 k/mm3 (150-375); Red Blood Count 3.19 M/mm3 (4.2-5.4); Red Cell Distribution Width 14.6 % (11.5-14.5); White Blood Count 9.5 K/mm3 (4.5-10.0)
== END 2019-09-03 11:44 | disposition home or self-care (01) ==
LOC: ANHLAB 11:43
PROVIDERS: Physician Assistant; PCP Family Medicine; Visit Provider Family Medicine
DX: D72.829 Elevated white blood cell count, unspecified (principal)
CPT/HCPCS: 36415; 85025

== ENCOUNTER 2020-04-13 00:04 | Inpatient (IN) | payer OTHER, SELFPAY ==
[2020-04-13] VITALS (26 sets, daily range): BP systolic 103–128; BP diastolic 60–88; PULSE 70–99; RESP 11–22; TEMP 36.1–36.7; O2SAT 15–100; BMI 41.3
--- NOTE | ~2020-04-13 | XR_ITS ---
EXAMINATION: XR chest 2V DATE: 04/13/2020 00:31 INDICATION: Midsternal chest pain TECHNIQUE: PA and lateral views of the chest are obtained. COMPARISON: 08/11/2019 FINDINGS: There are bilateral airspace opacities of the mid and lower lung zones. There is no pleural effusion or pneumothorax. Cardiomegaly is noted. There has been interval cardiac surgery. There is m ild thoracic spondylosis. IMPRESSION: 1. Patchy opacities of the mid and lower lung zones, consistent with atelectasis versus pneumonia. Reviewed, dictated and finalized at location A. [employer] IMPRESSION: 1. Patchy opacities of the mid and lower lung zones, consistent with atelectasi s versus pneumonia.
--- NOTE | 2020-04-13 00:11 | ECG_ITS ---
Measurements Intervals [place] Rate: 95 P: 52 VA: 200 QRS: -45 QRSD: 120 T: 89 QT: 349 QTc: 440 Interpretive Statements SINUS RHYTHM BORDERLINE AV CONDUCTION DELAY LEFT ANTERIOR FASCICULAR BLOCK BORDERLINE ST-T WAVE ABNORMALITY- HIGH LATERAL LEADS ABNORMAL ECG Electronically Signed On 04-13-2020 7:15:04 CLINCHING MACHINE OPERATOR by Salvador Pineda D.O.
[2020-04-13 00:24] LABS: Basophils Absolute Auto 0.1 K/mm3 (0.0-0.1); Basophils Percent Auto 0.4 % (0.2-1.2); Eosinophils Absolute Auto 0.2 K/mm3 (0-0.3); Eosinophils Percent Auto 1.3 % (0-4.4); Hemoglobin 12.4 g/dL (12.0-15.0); Immature Granulocyte Absolute 0.05 K/mm3 (0.00-0.031); Immature Granulocyte Percent A 0.4 % (0-0.5); Lymphocytes Absolute Auto 3.45 K/mm3 (0.9-3.2); Lymphocytes Percent Auto 24.2 % (18.3-44.2); Mean Corpuscular HGB Conc 31.8 g/dl (32-36); Mean Corpuscular Hemoglobin 25.7 pg (26-34); Mean Corpuscular Volume 80.9 fl (80-100); Mean Platelet Volume 8.4 fl (7.4-10.4); Monocytes Absolute Auto 0.7 K/mm3 (0.1-0.6); Monocytes Percent Auto 4.6 % (2.6-8.5); Neutrophils Absolute Auto 9.9 K/mm3 (1.3-6.7); Neutrophils Percent Auto 69.1 % (45.5-73.1); Platelet Count Result 472 k/mm3 (150-375); Red Blood Count 4.82 M/mm3 (4.2-5.4); Red Cell Distribution Width 17.3 % (11.5-14.5); White Blood Count 14.3 K/mm3 (4.5-10.0)
[2020-04-13 00:34] LABS: INR 0.8
[2020-04-13 00:38] LABS: Anion Gap 7 mmol/L (8-16); Blood Urea Nitrogen 18 mg/dL (7-17); Carbon Dioxide 26 mmol/L (22-30); Chloride 110 mmol/L (98-107); Estimated Glomerular Filt Rate > 60; Glucose 189 mg/dL (65-105); Potassium 3.9 mmol/L (3.4-5.0); Sodium 143 mmol/L (137-145)
[2020-04-13] MEDS: ASPIRIN 81 MG CHEWABLE TABLET 324 MG PO (00:47)
--- NOTE | 2020-04-13 00:49 | ED.CHESTPAIN ---
HPI - Chest Pain General Chief Complaint: Chest Pain Stated Complaint: chest pain x 2-3 hours Time Seen by Provider: 04/13/20 00:27 Source: patient Mode of arrival: ambulatory Limitations: no limitations History of Present Illness HPI narrative: This patient is a 50 year old female with history of BM, hyperlipidemia, CAD s/p CABG who presents for evaluation of midsternal chest pain. She states around 4 hours ago she developed dull midsternal chest aching pain. This pain has continued and she reports it is radiating her back. She initially had sob but that has resolved. She denies nausea, vomiting, fever or chills. She denies cough. She reports she was positive for covid on [place] but she has been cleared from quarantine. This pain is similar to pain she had around Mother's day. She was evaluated for that pain and she was scheduled for CABG a few days later. Related Data Home Medications Medication Instructions Recorded Confirmed clopidogrel 75 mg tablet 75 mg PO DAILY 08/26/19 04/13/20 atorvastatin 80 mg PO HS 04/13/20 04/13/20 buspirone 5 mg PO Q12H 04/13/20 04/13/20 empagliflozin [Jardiance] 10 mg PO DAILY 04/13/20 04/13/20 ezetimibe 10 mg PO DAILY 04/13/20 04/13/20 metformin 2,000 mg PO HS 04/13/20 04/13/20 metoprolol tartrate 12.5 mg PO Q12H 04/13/20 04/13/20 Allergies Allergy/AdvReac Type Severity Reaction Status Date / Time No Known Allergies Allergy Verified 12/02/19 15:53 Review of Systems Review of Systems: All systems reviewed & are unremarkable except as noted in HPI and below Constitutional: Constitutional: Denies chills and Denies fever(s) ENT: Denies sore throat Cardiovascular: Cardiovascular: Reports chest pain and Reports radiating jaw, neck or arm pain Respiratory: Respiratory: Denies cough Gastrointestinal: Gastrointestinal: Denies abdominal pain, Denies nausea and Denies vomiting PMFSH Past Medical History Medical History (Updated 04/13/20 @ 06:51 by Maranda Williamson MD) Chest pain HLD (hyperlipidemia) HTN (hypertension), benign Type 2 diabetes mellitus without complications Surgical History Surgical History (Updated 08/26/19 @ 14:14 by Benito Mckeon, PAMary) H/O bladder repair surgery Sling History of hysterectomy with bilateral oophorectomy S/P CABG x 2 S/P CABG x 2 Family History Family History (Updated 04/13/20 @ 02:49 by Corazon Lopez RN) Mother Diabetes mellitus Lung cancer Pacemaker Cerebrovascular accident Heart failure Grandparent Colon cancer Father Family history unknown Siblings are healthy Social History Social History Social History: The patient works for [employer]. She has a caregiver for her disabled daughter. The patient is to [place] and desires to have him as a durable power securities attorney for healthcare. Patient desires to be a full code. The patient stop smoking last year in December and has had increasing anxiety since then. The patient does not use any alcohol marijuana or illicit drugs. Smoking packs per day: 2 Smoking cigarettes per day: 40.0 Years smoked: 35 Smoking pack-years: 70.00 Smoking status: Former smoker Tobacco type: cigarettes Second hand tobacco smoke exposure: Yes Smoking end date: 01/02/19 Alcohol intake: never Substance use: never Substance use type: does not use Gender identity (if verbalized by the patient): Female Spiritual care concerns: No Exam Const: General: no acute distress and alert Orientation/consciousness: patient oriented x3 HENMT: Head: normocephalic and atraumatic Face and sinus: face symmetric Eyes: EOM: EOMs intact bilaterally Chest: Other: healed sternotomy incision Resp: Effort & Inspection: normal respiratory effort and no retractions Auscultation: clear to auscultation bilaterally Cardio: Rate: regular rate Rhythm: regular rhythm Heart sounds: no murmurs GI:
--- NOTE | 2020-04-13 01:04 | PC.NURSE ---
Patient states her chest pain is a /. Per EDP Clay, hold off on administering nitroglycerin gtt at this time.
[2020-04-13] MEDS: ENOXAPARIN 120 MG/0.8 ML SYRINGE SUB-Q (01:19)
--- NOTE | 2020-04-13 02:51 | ADMGEN ---
This patient, Kelli Fortune, was admitted to [facility]. Patient/family oriented to hospital policies and general routines including ID bracelet, bed and alarms, visiting hours, pain management, procedures, bathroom and other care routines, personal items, smoking policy, room service/diet, and visiting hours. Information on how to activate the Rapid Response Team has been discussed. Patient/Family are encouraged to report perceived risks to care and to ask questions if they do not understand what they are told or what they should do.
[2020-04-13 07:01] LABS: Glucose Point of Care 160 (65-105)
[2020-04-13 07:02] LABS: Troponin I 0.859 ng/mL (0.000-0.034)
[2020-04-13] MEDS: ASPIRIN 81 MG CHEWABLE TABLET PO (08:03)
[2020-04-13] MEDS: busPIRone HCL 5 MG TABLET PO ×2 (09:52→20:12)
[2020-04-13] MEDS: EZETIMIBE 10 MG TABLET PO (09:52)
[2020-04-13] MEDS: ESCITALOPRAM OXALATE 10 MG TABLET PO (09:52)
[2020-04-13] MEDS: METOPROLOL TARTRATE 12.5 MG TABLET PO ×2 (09:52→20:11)
--- NOTE | 2020-04-13 09:53 | PM.IMHP ---
H&P: HPI History of Present Illness Date/Time: 04/13/20 09:53 Chief Complaint: Chest pain Narrative: Kelli Fortune is a 50 year old female with history of HTN, HLD, anxiety, and CAD s/p CABG (2 vessel 08/[address] [facility]) who presented to the ED on 04/13 just after midnight with chief complaint of chest pain. She states she was arguing with family when chest pain started. Midsternal in nature, radiating to her back between her shoulder blades. She states she went home shortly after the cp started and decided to rest to see if the pain would subside, but actually worsened to a 6/10 at its worse. She noted that the pain was dull and achy and reminded her of similar pain when she had her CABG in August 2019, prompting her to proceed to the ED for further evaluation. She did not take anything for her cp initially, but noted that chest pain improved significantly at around 2:00 am after she was given aspirin and nitro. Pain was not associated with meals. She did notice slight SOB in ER last night, but improved this morning. She also recalled feeling extremely acutely fatigued when cp started; this has also improved. Denies any associated n/v, sweats, f/c, or cough. She now states her pain is about 1/10 currently. She denies any diagnoses of arrhythmias. No other complaints at the moment. Denies current subjective f/c/s, myalgias/arthralgias, headaches, dizziness, lightheadedness, changes in v/h, n/v/d/c, abd pain, changes in BMs, dysuria, calf pain/swelling. She does note having tested positive for COVID around 03/26/20 but has since been off quarantine and denies any residual symptoms at the moment. While in the ED, patient was found to have an elevated troponin of 1.070 (trend to 1.100 then 0.859), EKG findings of sinus rhythm with borderline AV conduction Delay, Left anterior fascicular block and borderline ST-T wave abnormality in high lateral leads (T wave inversion). CXR showed patchy opacities in mid and lower lung zones consistent with atelectasis vs pneumonia. NSTEMI was of concern in ED and thus Cardiology consulted from ED for further input. Pain improved with Nitro and ASA as noted above. Review of Systems Review of Systems: All systems reviewed & are unremarkable except as noted in HPI and below PMFSH Past Medical History Medical History Anxiety CAD (coronary artery disease) Chest pain HLD (hyperlipidemia) HTN (hypertension), benign Type 2 diabetes mellitus without complications Surgical History Surgical History H/O bladder repair surgery Sling History of hysterectomy with bilateral oophorectomy S/P CABG x 2 2 vessel CABG in 08/2019 Family History Family History Mother Diabetes mellitus Lung cancer Pacemaker Cerebrovascular accident Heart failure Grandparent Colon cancer Father Family history unknown Siblings are healthy Social History Social History Social History: The patient works for [employer]. She has a caregiver for her disabled daughter. The patient is to [place] and desires to have him as a durable power civil attorney for healthcare. Patient desires to be a full code. The patient stop smoking 12/2018. The patient does not use any alcohol marijuana or illicit drugs. Smoking packs per day: 2 Smoking cigarettes per day: 40.0 Years smoked: 35 Smoking pack-years: 70.00 Smoking status: Former smoker Tobacco type: cigarettes Second hand tobacco smoke exposure: Yes Smoking end date: 01/02/19 Alcohol intake: never Substance use: never Substance use type: does not use Gender identity (if verbalized by the patient): Female Spiritual care concerns: No Meds Home Medications and Allergies Home Medications Medication Instructions Recorded Confirmed Type cl
--- NOTE | 2020-04-13 10:08 | PM.CNCAR ---
Assessment and Plan Assessment and plan (1) Acute non-ST elevation myocardial infarction (NSTEMI): Code(s): I21.4 - Non-ST elevation (NSTEMI) myocardial infarction Status: Acute Assessment and Plan: 50-year-old female with CAD involving left main coronary artery status post CABG x2 (BAUTISTA to LAD, SVG to OM on 08/14/2019 at [facility]), hypertension, type 2 diabetes mellitus on oral hypoglycemics, morbid obesity. Patient presents to the hospital with complaints of chest pain with features similar to what she had prior to CABG; EKG shows nonspecific ST-T abnormalities, and troponins are mildly elevated which are trending downwards. Patient currently has mild ongoing chest discomfort. After discussing benefits, risks and alternatives, she is willing to proceed with coronary angiogram and bypass graft angiography to re-evaluate coronary anatomy and bypass grafts. Patient will be continued on standard treatment for ACS. (2) S/P CABG x 2: Code(s): Z95.1 - Presence of aortocoronary bypass graft Status: Acute Assessment and Plan: As described above History of Present Illness History of Present Illness Consult date/time: 04/13/20 10:08 Date of consult: 04/13/2020 Reason for consult: Chest pain Requesting physician:Dr. Williamson Chief complaint: Chest pain since yesterday HPI: 50-year-old female with CAD involving left main coronary artery status post CABG x2 (BAUTISTA to LAD, SVG to OM on 08/14/2019 at [facility]), hypertension, type 2 diabetes mellitus on oral hypoglycemics, morbid obesity. Patient has known CAD, and was admitted to [facility] on 08/11/2019 from her primary care physician's office with angina. Her cardiac catheterization from 08/12/2019 showed 70% stenosis at the ostial left main, 50-70% stenosis mid LAD, minor irregularities in the OM branches, mild about 20% stenosis in the dominant RCA, normal LVEF. Patient was referred for surgical revascularization, and had CABG x2 at [facility] on 08/14/2019. On the follow-up visit, patient was recovering well from cardiac standpoint. Patient returned to [facility] last night with complaints of chest pain that started about 8:30 p.m. last night. Patient describes the chest pain as heavy sensation in the substernal area associated with shortness of breath. She states that her chest pain is similar to what she had when she presented last year before diagnosis of coronary disease. Patient is also undergoing bereavement due to passing of her mother, where according to patient has pedal scheduled today. Patient states that she had COVID-19 infection last month with symptoms of tiredness and headache. She states that she has been out of quarantine for about 1 week. She denies any ongoing symptoms of fever or chills or myalgias. Patient states that she did not require hospitalization for COVID-19 infection. EKG at presentation on my personal evaluation showed sinus rhythm, left anterior fascicular block, nonspecific ST-T abnormality. Patient's troponins are mildly elevated with peak troponin level of 1.1 which is trending downwards. Chest x-ray showed patchy opacities of the mid and lower lung zones, consistent with atelectasis versus pneumonia. Reason For Visit: NSTEMI Review of Systems Review of Systems: Narrative: General: Negative for fever, chills, fatigue Psychological: Depressed mood due to passing of her mother Ophthalmic: negative for loss of vision ENT: Negative for epistaxis, headaches Allergy and immunology: Negative for hives, nasal congestion Hematologic and lymphatic: Negative for overt bleeding problems Endocrine: Negative for hot flashes, palpitations Respiratory: Negative for cough, hemoptysis Cardiovascular: Positive for chest pain and shortness of breath Gastrointestinal: Negative for abdominal pain, nausea, vomiting, hematochezia Musculoskeletal: Negative for myalgia, joint pains Neurological: Negative for weakness Dermatological:
--- NOTE | 2020-04-13 11:52 | PC.NURSE ---
1145-PT TAKEN TO [facility]TER PER MD ORDER
--- NOTE | 2020-04-13 12:03 | WPDMODSED ---
Moderate Sedation Note-Pt Data Patient Data Allergies Allergy/AdvReac Type Severity Reaction Status Date / Time No Known Allergies Allergy Verified 12/02/19 15:53 Home Medications Medication Instructions Recorded Confirmed Type clopidogrel 75 mg tablet 75 mg PO DAILY 08/26/19 04/13/20 History escitalopram oxalate 10 mg tablet 10 mg PO DAILY #30 tablet 03/08/20 04/13/20 Rx atorvastatin 80 mg PO HS 04/13/20 04/13/20 History buspirone 5 mg PO Q12H 04/13/20 04/13/20 History empagliflozin [Jardiance] 10 mg PO DAILY 04/13/20 04/13/20 History ezetimibe 10 mg PO DAILY 04/13/20 04/13/20 History metformin 2,000 mg PO HS 04/13/20 04/13/20 History metoprolol tartrate 12.5 mg PO Q12H 04/13/20 04/13/20 History Current Medications: Active Medications Aspirin (Aspirin 81 Mg Chewable Tablet) 81 mg PO DAILY@0800 [facility] Last Admin: 04/13/20 08:03 Dose: 81 mg Documented by: Atorvastatin Calcium (Atorvastatin 40 Mg Tablet) 80 mg PO [facility] Buspirone HCl (Buspirone Hcl 5 Mg Tablet) 5 mg PO Q12H [facility] Last Admin: 04/13/20 09:52 Dose: 5 mg Documented by: Ezetimibe (Ezetimibe 10 Mg Tablet) 10 mg PO DAILY [facility] Last Admin: 04/13/20 09:52 Dose: 10 mg Documented by: Escitalopram Oxalate (Escitalopram Oxalate 10 Mg Tablet) 10 mg PO DAILY [facility] Last Admin: 04/13/20 09:52 Dose: 10 mg Documented by: Acetaminophen (Ofirmev 1,000 Mg Ivpb) 1,000 mg in 100 mls @ 400 mls/hr IVPB Q6H PRN PRN Reason: Mild Pain (1-3) or Fever Stop: 04/14/20 01:34 Metoprolol Tartrate (Metoprolol Tartrate 12.5 Mg Tablet) 12.5 mg PO Q12H [facility] Last Admin: 04/13/20 09:52 Dose: 12.5 mg Documented by: Nitroglycerin (Nitroglycerin Sl 0.4 Mg Tablet) 0.4 mg SUBLINGUAL Q5MIN PRN PRN Reason: Chest Pain Ondansetron HCl (Ondansetron Inj 4 Mg/2 Ml Vial) 4 mg IV PUSH Q4H PRN PRN Reason: Nausea Sedation/Anesthesia: No previous sedation/anesthesia problems (including family history). [facility] Past Medical History Medical History Anxiety CAD (coronary artery disease) Chest pain HLD (hyperlipidemia) HTN (hypertension), benign Type 2 diabetes mellitus without complications Surgical History Surgical History H/O bladder repair surgery Sling History of hysterectomy with bilateral oophorectomy S/P CABG x 2 2 vessel CABG in 08/2019 Family History Family History Mother Diabetes mellitus Lung cancer Pacemaker Cerebrovascular accident Heart failure Grandparent Colon cancer Father Family history unknown Siblings are healthy Social History Social History Social History: The patient works for [employer]. She has a caregiver for her disabled daughter. The patient is to [place] and desires to have him as a durable power reconciliation manager for healthcare. Patient desires to be a full code. The patient stop smoking 12/2018. The patient does not use any alcohol marijuana or illicit drugs. Smoking packs per day: 2 Smoking cigarettes per day: 40.0 Years smoked: 35 Smoking pack-years: 70.00 Smoking status: Former smoker Tobacco type: cigarettes Second hand tobacco smoke exposure: Yes Smoking end date: 01/02/19 Alcohol intake: never Substance use: never Substance use type: does not use Gender identity (if verbalized by the patient): Female Spiritual care concerns: No Mod Sed Physical Exam Physical Exam Pre Procedural Exam: Normal: Airway Hours since solid foods: 10 Hours since liquid intake: 10 Internal Medicine - PN: Obj Da Vital Signs Vital Signs: Vital Signs - 24 hr 04/13/20 00:07 04/13/20 00:13 04/13/20 01:04 Temperature 36.6 C Pulse Rate 97 99 90 Respiratory Rate 12 14 Blood Pressure 122/85 116/79 Pulse Oximetry 100 99 04/13/20 02:08 04/13/20 02:25 04/13/20 02:37 Temperature Pulse Rate 79 83 97 Re
--- NOTE | 2020-04-13 12:39 | WPDCARDPROC ---
Cardiac Cath Procedure Note Date of procedure:: 04/13/20 Performing physician:: Ovi Adorno MD Procedure Procedure note:: LEFT HEART CATHETERIZATION, CORONARY ANGIOGRAM AND BYPASS GRAFT ANGIOGRAPHY REPORT DATE OF PROCEDURE: 04/13/2020 INDICATION FOR PROCEDURE: chest pain, elevated troponins; known CAD, history of CABGx2 BRIEF CLINICAL HISTORY:50-year-old female with CAD involving left main coronary artery status post CABG x2 (BAUTISTA to LAD, SVG to OM on 08/14/2019 at [facility]), hypertension, type 2 diabetes mellitus on oral hypoglycemics, morbid obesity. Patient presented to the hospital with complaints of chest pain with features similar to what she had prior to CABG; EKG shows nonspecific ST-T abnormalities, and troponins are mildly elevated which are trending downwards. Patient is undergoing emotional stress due to passing of her mother. After discussing benefits, risks and alternatives, she was willing to proceed with coronary angiogram and bypass graft angiography to re-evaluate coronary anatomy and bypass grafts. Benefits and risks of the procedure were discussed with the patient in depth, and informed consent was obtained prior to the procedure. Risks of the procedure include but are not limited to vascular complications including groin hematoma, retroperitoneal bleed, vessel perforation; periprocedural MD, cardiac arrhythmias, stroke, contrast induced nephropathy, and . After discussing all the benefits, risks and alternatives, patient was willing to proceed with the procedure. PROCEDURES PERFORMED: 1. Left heart catheterization- Selective left and right coronary angiogram; left ventriculogram and hemodynamic assessment 2. Selective bypass graft angiography 3. Selective left subclavian angiogram 4. Aortogram 5. Selective right common femoral angiogram and deployment of Angio-Seal hemostatic device 6. Moderate sedation-CPT code 95840 MODERATE SEDATION: Midazolam 2 mg; fentanyl 50 mcg; Start time 1210 , Stop time 1234 ; Total ecmm-dx-ntjg time 24 minutes; Stephanie Tenorio RN was trained observer for moderate sedation. ACCESS SITE: Right common femoral artery PROCEDURE NOTE: After obtaining informed consent, patient was brought to catheterization lab and prepped and draped in a usual sterile manner. After local anesthesia with lidocaine, right common femoral artery access was taken with micropuncture needle followed by insertion of a 6 [place] sheath. Selective left and right coronary angiogram was performed using 5 [place] JL3.5 and JR4 catheters respectively. Orthogonal views were taken. Next, attempts were made to perform selective bypass graft angiography of the SVG to OM, however, the graft could not be visualized. The same JR4 catheter was withdrawn, and was pointed towards the left pulmonary artery. Selective left subclavian angiogram was performed. After this, the catheter was exchanged with a 5 [place] IM catheter, and selective BAUTISTA angiogram was performed. Next, a 5 [place] pigtail catheter was advanced in the LV cavity and was flushed with normal saline. LV pressure measurement was performed. After this, left ventriculogram was performed. The catheter was flushed again, and gradient across the aortic valve was measured on the pullback of the catheter . Aortogram was performed using the pigtail catheter to check for the patency of the graft. Finally, selective right common femoral angiogram was performed followed by successful deployment of Angio-Seal vascular closure device. Patient tolerated procedure well without any immediate procedure related complications. FINDINGS: LEFT MAIN CORONARY: the left main coronary artery is a medium caliber vessel. There was catheter damping. Previously known ostial stenosis seen. On today's angiogram, the stenosis appeared to be about 50-60%. LEFT ANTERIOR DESCENDING ARTERY: The LAD is a medium caliber vessel with mild irregularities in the proximal segment; 50-70% jana
[2020-04-13] MEDS: SODIUM CHLORIDE 0.9% IV 1,000 ML 125 ML IV CONT (15:35)
[2020-04-13] MEDS: ATORVASTATIN 40 MG TABLET 80 MG PO (20:11)
[2020-04-13 20:15] LABS: Glucose Point of Care 243 (65-105)
[2020-04-13] MEDS: INSULIN ASPART (*BKC) 100 UNITS/ML SUB-Q (20:16)
[2020-04-14] VITALS (8 sets, daily range): BP systolic 109–122; BP diastolic 72–73; PULSE 75–84; RESP 15–17; TEMP 36.4–36.6; O2SAT 98–100
[2020-04-14 06:16] LABS: Hematocrit 37.1 % (37.0-47.0); Hemoglobin 11.6 g/dL (12.0-15.0); Mean Corpuscular HGB Conc 31.3 g/dl (32-36); Mean Platelet Volume 8.6 fl (7.4-10.4); Platelet Count Result 419 k/mm3 (150-375); Red Blood Count 4.47 M/mm3 (4.2-5.4); Red Cell Distribution Width 17.6 % (11.5-14.5); White Blood Count 10.2 K/mm3 (4.5-10.0)
[2020-04-14 06:25] LABS: Anion Gap 5 mmol/L (8-16); Blood Urea Nitrogen 15 mg/dL (7-17); Calcium 8.1 mg/dL (8.4-10.2); Carbon Dioxide 28 mmol/L (22-30); Chloride 107 mmol/L (98-107); Estimated CRCL calculation 130 ml/min; Estimated Glomerular Filt Rate > 60; Glucose 143 mg/dL (65-105); Magnesium 1.8 mg/dL (1.6-2.3); Potassium 3.7 mmol/L (3.4-5.0); Sodium 140 mmol/L (137-145)
[2020-04-14 06:49] LABS: Hemoglobin A1C 8.1 % (<5.7)
[2020-04-14 08:02] LABS: Glucose Point of Care 155 (65-105)
[2020-04-14] MEDS: ASPIRIN 81 MG CHEWABLE TABLET PO (08:04)
[2020-04-14] MEDS: EZETIMIBE 10 MG TABLET PO (08:04)
[2020-04-14] MEDS: ESCITALOPRAM OXALATE 10 MG TABLET PO (08:04)
[2020-04-14] MEDS: METOPROLOL TARTRATE 12.5 MG TABLET PO (08:04)
[2020-04-14] MEDS: busPIRone HCL 5 MG TABLET PO (08:04)
[2020-04-14] MEDS: LOSARTAN POTASSIUM 25 MG TABLET PO (08:04)
--- NOTE | 2020-04-14 09:42 | PM.DS ---
DS: Admitting Diagnosis Admitting Diagnosis Admitting Diagnosis: Chest pain, elevated troponins, suspected NSTEMI DS: Discharge Diagnosis Discharge Diagnosis (1) Acute non-ST elevation myocardial infarction (NSTEMI): Code(s): I21.4 - Non-ST elevation (NSTEMI) myocardial infarction Status: Acute Assessment and Plan: Chest pain similar to previous hospital stay back in 08/2019 just prior to CABG. EKG shows Nonspecific St-T wave abnormalities. Serial troponin 1.070, 1.100, and 0.859. Cardiology consulted and appreciate recommendations. Cardiac Cath Findings on 04/13/20: 1. CAD: 50-60% ostial left main stenosis; 50-70% stenosis mid LAD; mild about 20% stenosis mid RCA. 2. Patent BAUTISTA to LAD; SVG to OM not visualized, possibly occluded. 3. Patent left subclavian artery 4. LV dysfunction with segmental wall motion abnormality -akinesis to dyskinesis of mid-distal anterior wall and apical segments , basal segments relatively preserved. Findings consistent with Takotsubo Cardiomyopathy. LVEF approximately 35%; mitral regurgitation; LVEDP 14 mmHg. Appears patient wiill be discharged on metoprolol succinate 25 mg daily and Losartan 25 mg daily per Cardiology recommendations F/u with Cardiology Okay for discharge per Cardiology (2) Systolic heart failure: Code(s): I50.20 - Unspecified systolic (congestive) heart failure Status: Acute Assessment and Plan: per Cardiac cath above, LVEF of approximately 35% with evidence of findings consistent with Takotsubo Cardiomyopathy Patient to be treated medically with metoprolol and losartan as noted above Further care per Cardiology; F/u per their instructions (3) Chest pain: Qualifiers: Chest pain type: chest pain due to myocardial ischemia Ischemic chest pain type: unstable angina pectoris Qualified Code(s): I20.0 - Unstable angina Code(s): R07.9 - Chest pain, unspecified Status: Acute Assessment and Plan: Resolved; felt to be related to above. See above a/p (4) CAD (coronary artery disease): Qualifiers: Associated angina: with unstable angina Coronary Disease-Associated Artery/Lesion type: [place] artery [place] vs. transplanted heart: [place] heart Qualified Code(s): I25.110 - Atherosclerotic heart disease of [place] coronary artery with unstable angina pectoris Code(s): I25.10 - Atherosclerotic heart disease of [place] coronary artery without angina pectoris Status: Acute Assessment and Plan: Follows Dr. Adorno as outpatient; has been consulted. Appreciate input Continue home meds See above a/p (5) HTN (hypertension), benign: Code(s): I10 - Essential (primary) hypertension Status: Acute Assessment and Plan: BP 120s sys most recently Continue home meds (6) HLD (hyperlipidemia): Code(s): E78.5 - Hyperlipidemia, unspecified Status: Chronic Assessment and Plan: Continue home meds when able (7) Type 2 diabetes mellitus without complications: Code(s): E11.9 - Type 2 diabetes mellitus without complications Status: Chronic Assessment and Plan: BGL 100s. A1c 8.1 Resume home meds tomorrow Accuchecks ACHS, hypoglycemia protocol, correctional insulin, HH per Cardiology F/u with PCP (8) Anxiety: Code(s): F41.9 - Anxiety disorder, unspecified Status: Acute Assessment and Plan: Continue home meds (9) Leukocytosis: Code(s): D72.829 - Elevated white blood cell count, unspecified Status: Acute Assessment and Plan: 14.3k on arrival. Down to 10.2k today. No evidence or s/sx of acute infection at this time.
--- NOTE | 2020-04-14 09:44 | PM.PNCARD ---
Progress Note: A&P Assessment and Plan (1) Takotsubo cardiomyopathy: Code(s): I51.81 - Takotsubo syndrome Status: Acute Assessment and Plan: EF 35% with apical ballooning and preservation of basal segments consistent with takotsubo cardiomyopathy in setting of severe emotional stress with the very recent of her mother. As such, despite elevated troponin there is no evidence acute plaque rupture or acute coronary syndrome. Elevated troponin secondary to demand ischemia in setting of takotsubo cardiomyopathy. Will add aspirin 81 mg daily for at least the next month with continuation of clopidogrel. Observation medical management with addition of ARB, change metoprolol to Toprol XL 25 mg daily. Explained all recommendation to the patient including post catheterization precautions. All questions answered to her satisfaction. Stable for discharge home to follow up within [address] Adorno in the office May 12 315PM. (2) Acute non-ST elevation myocardial infarction (NSTEMI): Code(s): I21.4 - Non-ST elevation (NSTEMI) myocardial infarction Status: Acute Assessment and Plan: 50-year-old female with CAD involving left main coronary artery status post CABG x2 (BAUTISTA to LAD, SVG to OM on 08/14/2019 at [facility]), hypertension, type 2 diabetes mellitus on oral hypoglycemics, morbid obesity. Patient presents to the hospital with complaints of chest pain with features similar to what she had prior to CABG; EKG shows nonspecific ST-T abnormalities, and troponins are mildly elevated which are trending downwards. Coronary angiogram reveals patent BAUTISTA to LAD, occluded SVG to OM but with minimal [place] occlusive disease in the circumflex/OM distribution. Apical ballooning with preservation of basal segments EF 35% consistent with takotsubo cardiomyopathy. Clinically, this is congruent with the very recent of her mother. -see above. (3) S/P CABG x 2: Code(s): Z95.1 - Presence of aortocoronary bypass graft Status: Acute Assessment and Plan: As described above Subjective Date/time seen: Date of service: 04/14/20 09:44 Follow-up for chest pain, CAD, status post cardiac catheterization Feels fine overall. Denies chest pain, shortness of breath. No issues overnight. Feels tired but she remains sad regarding the very recent of her mother. Denies leg discomfort at catheterization site. Review of Systems Review of Systems: All systems reviewed & are unremarkable except as noted in HPI and below Constitutional: Constitutional: Reports as per HPI, Reports no additional constitutional complaints and Reports fatigue Eyes: Eyes: Reports as per HPI and Reports no additional eye complaints ENT: Reports system reviewed and no additional complaints, except as documented and Reports as per HPI Cardiovascular: Cardiovascular: Reports as per HPI, Reports no additional cardiovascular complaints, Denies chest pain, Denies leg edema and Denies palpitations Respiratory: Respiratory: Reports as per HPI, Reports no additional respiratory complaints, Denies dyspnea and Denies dyspnea on exertion Gastrointestinal: Gastrointestinal: Reports as per HPI and Reports no additional gastrointestinal complaints Genitourinary: Genitourinary: Reports no additional female genitourinary complaints, Reports as per HPI, Denies hematuria and Denies dysuria Musculoskeletal: Musculoskeletal: Reports no additional musculoskeletal complaints and Reports as per HPI Integumentary/Breasts: Skin/Breast: Reports system reviewed and no additional complaints, except as docu and Reports as per HPI Neurologic: Reports system reviewed and no additional complaints, except as documented and Reports as per HPI Psychiatric: Psychiatric: Reports no additional psychiatric complaints and Reports as per HPI Endocrine: Endocrine: Reports no additional endocrine complaints and Reports as per HPI Hematologic/Lymphatic: Hematologic
--- NOTE | 2020-04-14 10:54 | PC.NURSE ---
1025-pt given D/C orders and instructions. Questions answered and verbalized understanding. AOx4. Groin soft and non-tender, no evidence of bleeding or hematoma noted. Strong right pedal pulse noted. Taken via wheelchair to waiting vehicle. No distress noted or verbalized at time of departure.
== END 2020-04-14 10:25 | disposition home or self-care (01) | DRG 287 ==
LOC: ANHED 00:52 → ANHCPC 02:56
PROVIDERS: Internal Medicine Cardiovascular Disease; Admitting Provider Internal Medicine; Emergency Provider General Practice; PCP Family Medicine; Visit Provider Physician Assistant
PROC: 4A023N7 Measurement of Cardiac Sampling and Pressure, Left Heart, Percutaneous Approach (ICD-10-PCS; CPT 93459; principal; 2020-04-13 12:30)
PROC: 4A023N7 Measurement of Cardiac Sampling and Pressure, Left Heart, Percutaneous Approach (ICD-10-PCS; 2020-04-13 12:30)
DX: I51.81 Takotsubo syndrome (principal); Z68.41 Body mass index [BMI] 40.0-44.9, adult; I50.20 Unspecified systolic (congestive) heart failure; I11.0 Hypertensive heart disease with heart failure; E66.01 Morbid (severe) obesity due to excess calories; I25.10 Atherosclerotic heart disease of native coronary artery without angina pectoris; E11.9 Type 2 diabetes mellitus without complications; F41.9 Anxiety disorder, unspecified; E78.5 Hyperlipidemia, unspecified; D72.829 Elevated white blood cell count, unspecified; Z95.1 Presence of aortocoronary bypass graft; Z90.710 Acquired absence of both cervix and uterus; Z90.722 Acquired absence of ovaries, bilateral; Z87.891 Personal history of nicotine dependence
CPT/HCPCS: 36415; 71046; 80048; 83036; 83735; 84484; 85025; 85027; 85610; 85730; 93005; 93459; 96372; 99291; A9270; C1760; C1769; C1887; C1894; G0269; J1644; J1650; J1815; J2250; J3010; J7030

== ENCOUNTER 2021-04-12 14:12 | Emergency (ER) | payer OTHER, SELFPAY ==
--- NOTE | ~2021-04-12 | XR_ITS ---
EXAMINATION: XR ankle RT min 3V DATE: 04/12/2021 14:34 INDICATION: Right ankle pain. Injury. TECHNIQUE: 4 views of right ankle were obtained. COMPARISON: None. FINDINGS: Bone alignment is normal. No fracture. There is mild midfoot osteoarthritis. There are enth esophytes at the posterior and plantar aspects of calcaneal tuberosity. There is ankle soft tissue sw elling. IMPRESSION: 1. No fracture. Reviewed, dictated and finalized at location B. [facility] IMPRESSION: 1. No fracture.
[2021-04-12 14:24] VITALS: BP 126/68; PULSE 71; RESP 16; TEMP 37.7; O2SAT 99
--- NOTE | 2021-04-12 14:25 | ED.LOWEXIN ---
HPI - Extremity Injury (Lower) General Chief Complaint: Extremity Injury, Lower Stated Complaint: right foot pain Time Seen by Provider: 04/12/21 14:26 Source: patient, RN notes reviewed and old records reviewed Mode of arrival: ambulatory Limitations: no limitations History of Present Illness HPI Narrative: 51-year-old female presents to the [facility] with right lateral ankle and foot pain since yesterday. Patient states that she stepped in a hole and rolled her ankle. Has taken Tylenol 1 time last night. Related Data Allergies Allergy/AdvReac Type Severity Reaction Status Date / Time No Known Allergies Allergy Verified 01/05/21 14:25 Review of Systems Review of Systems: All systems reviewed & are unremarkable except as noted in HPI and below Constitutional: Constitutional: Reports no additional constitutional complaints Eyes: Eyes: Reports no additional eye complaints ENT: Reports system reviewed and no additional complaints, except as documented Cardiovascular: Cardiovascular: Reports no additional cardiovascular complaints Respiratory: Respiratory: Reports no additional respiratory complaints Musculoskeletal: Musculoskeletal: Reports as per HPI and Reports joint swelling (Right lateral ankle) Integumentary/Breasts: Skin/Breast: Reports system reviewed and no additional complaints, except as docu Neurologic: Reports system reviewed and no additional complaints, except as documented Psychiatric: Psychiatric: Reports no additional psychiatric complaints Allergic/Immunologic: Allergic/Immunologic: Reports no additional allergic/immunologic complaints PMFSH Past Medical History Medical History Anxiety CAD (coronary artery disease) Chest pain HLD (hyperlipidemia) HTN (hypertension), benign Type 2 diabetes mellitus without complications Surgical History Surgical History H/O bladder repair surgery Sling History of hysterectomy with bilateral oophorectomy S/P CABG x 2 2 vessel CABG in 08/2019 Family History Family History Mother Diabetes mellitus Lung cancer Pacemaker Cerebrovascular accident Heart failure Grandparent Colon cancer Father Family history unknown Siblings are healthy Social History Social History Social History: The patient works for [employer]. She has a caregiver for her disabled daughter. The patient is to [place] and desires to have him as a durable power assistant attorney general for healthcare. Patient desires to be a full code. The patient stop smoking 12/2018. The patient does not use any alcohol marijuana or illicit drugs. Smoking packs per day: 2 Smoking cigarettes per day: 40.0 Years smoked: 35 Smoking pack-years: 70.00 Smoking status: Former smoker Tobacco type: cigarettes Second hand tobacco smoke exposure: Yes Smoking end date: 01/02/19 Alcohol intake: never Alcohol use details: social drinker Substance use: never Substance use type: does not use Gender identity (if verbalized by the patient): Female Spiritual care concerns: No Comments At the time of my signature, I reviewed and agree with the nursing past medical, surgical, social, and family history. There is no relevant family history pertinent to the patient complaint. Exam Const: General: healthy appearing, no acute distress and alert Nutritional Appearance: well nourished and obese Orientation/consciousness: patient oriented x3 Limitations: no limitations HENMT: Head: normal to inspection Ears: external ears normal Eyes: Pupils: Equal, round and reactive pupils present Neck: Neck: normal visual inspection, no lymphadenopathy and no meningeal signs Chest: Chest palpation & inspection: normal inspection of the chest Resp: Effort & Inspection: normal respiratory effort
== END 2021-04-12 15:20 | disposition home or self-care (01) ==
PROVIDERS: Emergency Provider Nurse Practitioner; PCP Family Medicine
DX: S93.401A Sprain of unspecified ligament of right ankle, initial encounter (principal); X50.9XXA Other and unspecified overexertion or strenuous movements or postures, initial encounter; Y93.9 Activity, unspecified; I25.10 Atherosclerotic heart disease of native coronary artery without angina pectoris; E78.5 Hyperlipidemia, unspecified; I10 Essential (primary) hypertension; E11.9 Type 2 diabetes mellitus without complications; Z95.1 Presence of aortocoronary bypass graft; Z87.891 Personal history of nicotine dependence
CPT/HCPCS: 73610; 99213; G0463

== ENCOUNTER → 2021-07-12 13:12 | Outpatient (CLI) | payer OTHER, SELFPAY ==
--- NOTE | ~2021-07-12 | CT_ITS ---
EXAMINATION:CT lung screening DATE: 07/12/2021 13:27 INDICATION: Encounter for screening for malignant neoplasm of respiratory organs. Smoker who quit 3 y ears ago with 30 pack year history. TECHNIQUE: Computed tomography (CT) of the chest was performed without intravenous contrast. Automate d exposure control and iterative reconstruction technique were employed. The dose-length product (DLP ) was 392.02 mGy-cm. COMPARISON: None. FINDINGS: There is mild atelectasis in left upper lobe. No pleural effusion. The heart size is normal . There are changes of coronary artery bypass grafting. No pericardial effusion. There is mild thorac ic spondylosis. IMPRESSION: 1. Lung-RADS category 1: Negative. Continue annual screening with noncontrast low-dose chest CT in 12 months. Reviewed, dictated and finalized at location A. IMPRESSION: 1. Lung-RADS category 1: Negative. Continue annual screening with noncontrast l ow-dose chest CT in 12 months.
== END ==
PROVIDERS: PCP Family Medicine; Visit Provider Nurse Practitioner Family
DX: Z12.2 Encounter for screening for malignant neoplasm of respiratory organs (principal); Z87.891 Personal history of nicotine dependence
CPT/HCPCS: 71271

== ENCOUNTER 2021-09-14 12:43 | Outpatient (CLI) | payer OTHER, SELFPAY ==
--- NOTE | ~2021-09-14 | MM_ITS ---
EXAMINATION: MM screening dom BI w angie HISTORY: Screening TECHNIQUE: Craniocaudal and mediolateral oblique 3-D tomosynthesis images were obtained and synthetic 2-D images were generated. CAD analysis was submitted and interpreted. COMPARISON: No prior mammogram is available for comparison at this institution. BREAST PARENCHYMAL COMPOSITION: The breasts are almost entirely fatty. FINDINGS: There is no evidence of suspicious mass, calcification, or architectural distortion to sugg est malignancy in either breast. There has been no suspicious interval change. IMPRESSION: 1. No mammographic evidence of malignancy. 2. Recommend routine screening mammography in one year. BI-RADS Category 1: Negative Reviewed, dictated and finalized at location D.
== END 2021-09-14 12:44 | disposition home or self-care (01) ==
LOC: ANHIMG 12:44
PROVIDERS: PCP Family Medicine; Visit Provider Nurse Practitioner Family
DX: Z12.31 Encounter for screening mammogram for malignant neoplasm of breast (principal)
CPT/HCPCS: 77063; 77067

== ENCOUNTER → 2022-09-12 12:17 | Outpatient (CLI) | payer OTHER, SELFPAY ==
--- NOTE | ~2022-09-12 | CT_ITS ---
EXAMINATION: CT lung screening DATE: 09/12/2022 12:53 INDICATION: Personal history of nicotine dependence TECHNIQUE: Computed tomography (CT) of the chest was performed without intravenous contrast. The dose -length product was 365.08 mGy-cm. Automated exposure control and iterative reconstruction technique were employed. COMPARISON: CT dated 07/12/2021 FINDINGS: There are changes of gastric bypass surgery. No endobronchial lesions. No pneumothorax. No significant pleural or pericardial effusion. No thoracic lymphadenopathy. There is atherosclerosis of the aorta and coronary arteries. No pneumothorax. No focal airspace disease. No endobronchial lesion s. There is a 2 mm right fissural nodule on the right, image 57. There is a 1-2 mm left lower lobe no dule, image 73. There is chronic lingular subpleural atelectasis/scarring unchanged. IMPRESSION: 1. Lung-RADS category 2: Benign appearance or behavior. Continue annual screening with noncontrast lo w-dose chest CT in 12 months. Reviewed, dictated and finalized at location L. IMPRESSION: 1. Lung-RADS category 2: Benign appearance or behavior. Continue annual screeni ng with noncontrast low-dose chest CT in 12 months.
== END ==
PROVIDERS: PCP Physician Assistant; Visit Provider Physician Assistant
DX: Z12.2 Encounter for screening for malignant neoplasm of respiratory organs (principal); Z87.891 Personal history of nicotine dependence
CPT/HCPCS: 71271

== ENCOUNTER 2024-05-09 08:50 | Outpatient (CLI) | payer OTHER, SELFPAY ==
--- NOTE | ~2024-05-09 | CT_ITS ---
EXAMINATION: CT lung screening DATE: 05/09/2024 09:03 INDICATION: Z12.2 - Encounter for screening for malignant neoplasm of... TECHNIQUE: Computed tomography (CT) of the chest was performed without intravenous contrast. Addition al 3D reconstructions utilizing coronal maximum intensity projection (MIP) were performed. Automated exposure control and iterative reconstruction technique were employed. The dose-length product was 18 4.91 mGy-cm. COMPARISON: CT dated 09/12/2022 FINDINGS: Unchanged discoid atelectasis/scarring at the lingula. Unchanged 2-3 mm nodule in the right middle lo be, 2 mm jigna fissural nodule along the right minor fissure and 2 mm nodules in the lingula and left lower lobe. No new or enlarging pulmonary nodules, pneumonia, pulmonary edema or pleural effusion. He art size is normal. Atherosclerotic coronary artery calcifications and change of prior median sternot jonny and coronary artery bypass grafting. No pericardial effusion. Thoracic aorta is normal in caliber . No pathologically enlarged thoracic lymphadenopathy. Small sliding-type hiatal hernia. Gastrectomy with suture line along the greater curvature of the stomach. Moderate thoracic spondylosis. IMPRESSION: 1. Lung-RADS category 2: Benign appearance or behavior. Continue annual screening with noncontrast lo w-dose chest CT in 12 months. Reviewed, dictated and finalized at location B. [facility] IMPRESSION: 1. Lung-RADS category 2: Benign appearance or behavior. Continue annual screeni ng with noncontrast low-dose chest CT in 12 months.
== END 2024-05-09 08:51 | disposition home or self-care (01) ==
LOC: MICIMG 08:51
PROVIDERS: PCP Family Medicine; Visit Provider Physician Assistant Medical
DX: Z12.2 Encounter for screening for malignant neoplasm of respiratory organs (principal); Z87.891 Personal history of nicotine dependence
CPT/HCPCS: 71271

== ENCOUNTER 2024-09-24 15:05 | Outpatient (CLI) | payer OTHER, SELFPAY ==
--- NOTE | ~2024-09-24 | MM_ITS ---
EXAMINATION: MM screening dom BI w angie HISTORY: Screening mammogram TECHNIQUE: Craniocaudal and mediolateral oblique 3-D tomosynthesis images were obtained and synthetic 2-D images were generated. CAD analysis was submitted and interpreted. COMPARISON: 09/14/2021 BREAST PARENCHYMAL COMPOSITION:Not Dense. The breasts are almost entirely fatty FINDINGS: No suspicious mass, calcification, or architectural distortion are identified in either joanna ast to suggest malignancy. There has been no suspicious interval change. IMPRESSION: No mammographic evidence of malignancy. Recommend routine screening mammography in one year. BI-RADS Category 1: Negative Reviewed, dictated and finalized at location .
== END 2024-09-24 15:06 | disposition home or self-care (01) ==
LOC: ANHIMG 15:07
PROVIDERS: PCP Family Medicine; Visit Provider Physician Assistant Medical
DX: Z12.31 Encounter for screening mammogram for malignant neoplasm of breast (principal)
CPT/HCPCS: 77063; 77067